=== PATIENT | male | born 1935 | race Caucasian/White ===

== ENCOUNTER 2016-10-01 08:15 | Observation (INO) | payer MEDICARE ==
[~2016-10-01] VITALS: Ht 177.8 cm; Wt 84.5 kg
[2016-10-01] VITALS (8 sets, daily range): BP systolic 138–172; BP diastolic 75–96; PULSE 48–88; RESP 12–19; O2SAT 94–100
[~2016-10-01 08:15] MED LIST: AMLO5TAB2 PO; ASCO500T7 PO; ASPI-628 PO; CALC500T61 PO; CHOL100043 PO; NITR0.4T SL; NITR4.9S5 SL; OMEG1CAP56 PO; OMEP-113 PO; ROSU5TAB PO; UBID100C25 PO; VITA1CAP PO
--- NOTE | 2016-10-01 08:42 | ED.REPORT ---
HPI-Dyspnea / Wheezing Date of Service Oct 01, 2016 ED Provider: Aiden Ni MD The pt is a 80 y/o male w/ a hx of obstructive sleep apnea and CAD presenting to the ED complaining of SOB onset 1 week ago. He reports feeling increasingly short of breath after walking his dog earlier today. The pt also reports sharp back pain between his shoulder blades and L arm pain that lasted for 2 days last week. His also reports the pt was unable to hold a baby yesterday due to increasing weakness. Denies CP, fevers, cough, nasal congestion, vomiting. The pt usually walks roughly 10,000 steps a day. The pt had similar symptoms, w / no CP, 15 years ago, which eventually led to a 5 way bypass. Code status discussed: Full code Nursing Notes Stated Complaint: SOB Chief Complaint: SOB Nursing Notes Reviewed: Yes Allergies: Coded Allergies: Sulfa (Sulfonamide Antibiotics) (Verified Allergy, Unknown, 06/29/14) Scheduled Amlodipine (Amlodipine) 5 Mg Tablet 5 MG PO HS Ascorbic Acid (Vitamin C) 500 Mg Tab.chew 500 MG PO DAILY Aspirin (Aspir 81) 81 Mg Tablet.dr 81 MG PO HS Calcium Carbonate (Calcium) 500 Mg Tablet 500 MG PO DAILY Cholecalciferol (Vitamin D3) (Vitamin D) 1,000 Unit Tablet 1,000 UNIT PO DAILY [place]-3 Fatty Acids/Fish Oil ([place] 3 1,000 mg Softgel) 1 Each Capsule 1 EACH PO DAILY Omeprazole Magnesium (Omeprazole) 20 Mg Capsule.dr 20 MG PO every other day Rosuvastatin Calcium (Crestor) 5 Mg Tablet 5 MG PO HS Ubidecarenone (Co Q-10) 100 Mg Capsule 100 MG PO DAILY Vitamin B Complex (Vitamin B Complex) 1 Each Capsule 1 EACH PO DAILY Scheduled PRN Nitroglycerin SL (Nitrostat) 0.4 Mg Tab.subl 0.4 MG SL Q5MIN PRN PRN For Chest Pain Nitroglycerin [place] (Nitroglycerin [place]) 4.9 Gm [place] 1 SPRAY SL Q5MIN PRN PRN For Chest Pain General Time Seen by MD: 08:22 Chief Complaint Shortness of breath Hx Obtained From: Patient Arrived By: Walk-in Sudden in Onset?: Yes Onset Occurred: 1 week ago Symptom Duration: Since onset Recent Healthcare: No recent hospitalization, Recent doctor visit Similar Sx Previous: Yes Past Medical History Past Medical History EDISON CAD Code status: Full code Reports: Hyperlipidemia, Hypertension Past Surgical History cervical fusion rotator cuff Reports: CABG Smoking History Former Smoker Social History Alcohol Use: "Social" Other Social History: , From out of town Ambulatory Status Independent Review of Systems Sharp pain between shoulder blades; Constitutional: Denies: Fever Ears / Nose / Throat: Denies: Nasal congestion Respiratory: Reports: Dyspnea on exertion, Shortness of breath, Denies: Non-productive cough Cardiovascular: Denies: Chest pain Musculoskeletal: Reports: Extremity pain (L arm ) Complete sys rev & neg: except as marked. GI: Denies: Vomiting Neurologic: Reports: Weakness Physical Exam Initial Vital Signs Vital Signs (First) Date Time Temp Pulse Resp B/P Pulse Ox O2 Delivery O2 Flow Rate FiO2 10/01/16 08:21 36.6 62 19 163/79 96 Room Air Initial VS: Reviewed Head / Eyes: Atraumatic, Normocephalic, PERRL ENT: Mucous membranes moist, Conjunctiva normal, No scleral icterus Extremities: Vascular intact, Neuro intact, No swelling, No tenderness Skin: Warm, Dry, No cyanosis Neurologic: Alert, Oriented, Nonfocal Psychiatric: Mood/affect normal, Behavior normal, Normal thought content General/Constitutional: Awake, Alert Neck: Atraumatic, Supple, Full range of motion Respiratory / Chest: Atraumatic, Breath sounds NL, Breath sounds = bilat Cardiovascular: Heart rate NL, Regular rhythm, Heart sounds NL No peripheral edema Interpretation & Diagnostics Lab Results Interpretation Result Diagram: 10/01/16 0830 10/01/16 0830 Test 10/01/16 08:30 10/01/16 08:47 White Blood Count 6.4th/mm3 (3.8-10.1) Red Blood Count 4.63mil/mm3 (4.40-5.80) Hemoglobin 15.3g/dL (13.8-17.2) Hematocrit 43.9% (41.0-50.0) Mean Corpuscular Volume 94.8fL (81-100) Mean Corpuscular Hemoglobin 33.0pg (27.0-35.0) Mean Corpuscular Hemoglobin Concent 34.9% (32.0-37.0) Red Cell Distribution Width 13.0% (12.3-15.4) Platelet Count 212bil/L (150-400) Neutrophils (%) (Auto) 63.2% (40-74) Lymphocytes (%) (Auto) 21.4% (14-46) Monocytes (%) (Auto) 10.2% (4-12) Eosinophils (%) (Auto) 4.4% (0-5) Basophils (%) (Auto) 0.5% (0-3) Prothrombin Time 9.7sec (8.1-12.5) Prothromb Time International Ratio 0.91ratio Activated Partial Thromboplast Time 26.4sec (22.8-33.0) D-Dimer < 0.50mg/L FEU (<0.50) Sodium Level 143mEq/L (134-144) Potassium Level 4.2mEq/L (3.5-5.2) Chloride Level 108mEq/L (97-108) Carbon Dioxide Level 21mmol/L (18-29) Blood Urea Nitrogen 20mg/dL (8-27) Creatinine 0.86mg/dL (0.76-1.27) Estimat Glomerular Filtration Rate 91mL/min (>59) Glucose Level 87mg/dL (60-99) Calcium Level 9.4mg/dL (8.5-10.1) Magnesium Level 2.2mg/dL (1.6-2.6) Total Bilirubin 0.4mg/dL (0.0-1.2) Aspartate Amino Transf (AST/SGOT) 22U/L (0-50) Alanine Aminotransferase (ALT/SGPT) 20U/L (0-44) Alkaline Phosphatase 52U/L (25-160) Pro-B-Type Natriuretic Peptide 93.02pg/mL (0-486) Total Protein 7.0g/dL (6.4-8.4) Albumin 4.5g/dL (3.4-5.0) Hold Young Top Tube Received (Received) Hold Urine Received (Received) ECG Interpretation ECG Interpretation: Rate [address] elevation isolated to V2 Time: 08:22 Interpreted by: ED physician X-Ray Chest Interpretation Chest Xray Interpretation: IMPRESSION: Sternotomy wires, presumed prior CABG. Mildly reduced inspiratory volume, chronic mild asymmetric elevation of the left hemidiaphragm. Dictated by: Star Noyola M.D. on 10/01/2016 at 8:51 Approved by: Star Noyola M.D. on 10/01/2016 at 8:52 View: Portable, 1 view Interpretation / Wet Read by: Interpret - Radiologist Re-Eval/Medical Decision Med Decision/Clinical Course 80-year-old male with history of 5 vessel CABG in 2001 present with exertional dyspnea worsening over the last couple days. His vital signs are stable. His EKG shows ST elevations in isolated in V2 with T wave inversion in V2 which is reportedly unchanged from previous per review with cardiology. Initial troponins are negative. Discussed with cardiology. We will admit for heparin drip, stress test. Source of Hx: Old records Re-Evaluation/Progress : Time of Eval: 09:55 Re-Evaluation/Progress Note: Pt rechecked. Informed pt of need for admission. Pt understands and agrees with plan for admission. All questions addressed. Consultation : Referral / Consult Name: Mario Nevarez MD Consulted With: Hospitalist Call Returned at: 10:30 Manager Of Training And Development: Will see patient, Agrees with eval, Agrees with plan, Accepts admit Counseled Regarding: Diagnosis, Lab results, Need for admission Discharge & Departure Impression: Primary Impression: Chest pain Chest pain type: unspecified Qualified Code: R07.9 - Chest pain, unspecified Disposition: Home Discharge Condition All VS Reviewed: Yes Condition: Stable Referrals: Ced Alford (PCP) Crit Care Except Billable Proc Time Spent: 75-104 minutes Services Performed: Patient management by me, Time spent at bedside, Reviewing test results, Reviewing imaging, Discussing patient care, Documentation in record, Time with fam/surrogate Scribe Attestation Portions of this note were transcribed by Franky Adan. I, Dr. Ni personally performed the history, physical exam and medical decision-making; I reviewed and confirmed the accuracy of the information in the transcribed note. copies to: Ced Alford Ben M MD Oct 01, 2016 08:42 Franky Adan Oct 01, 2016 09:04
[2016-10-01 08:49] LABS: BASOPHILS % (AUTO) 0.5 % (0-3); EOSINOPHILS % (AUTO) 4.4 % (0-5); MONOCYTES % (AUTO) 10.2 % (4-12); Mean Corpuscular Volume 94.8 fL (81-100); NEUTROPHILS % (AUTO) 63.2 % (40-74); Platelet Count 212 bil/L (150-400)
--- NOTE | 2016-10-01 08:53 | DRSVH ---
PROCEDURE: X-RAY CHEST ONE VIEW, PORTABLE ([id number]) INDICATIONS: SHORT OF BREATH TECHNIQUE: One view of the chest was acquired. COMPARISON: [facility], , CHEST 1VW (PORTABLE), 06/29/2014, 14:49. FINDINGS: Surgical changes and devices: Sternotomy wires, presumed prior CABG. Mild elevation of left diaphrag m previously present. Lungs and pleura: No pleural effusions or pneumothorax. Lungs are clear. Mediastinum: Mediastinal contours appear normal. Heart size is normal. Bones and chest wall: No suspicious bony lesions. Overlying soft tissues appear unremarkable. IMPRESSION: Sternotomy wires, presumed prior CABG. Mildly reduced inspiratory volume, chronic mild a symmetric elevation of the left hemidiaphragm. Dictated by: Star Noyola M.D. on 10/01/2016 at 8:51 Approved by: Star Noyola M.D. on 10/01/2016 at 8:52
[2016-10-01 09:05] LABS: INR 0.91 ratio
[2016-10-01 09:12] LABS: TROPONIN T 0.01 ug/L (0.0-0.011)
[2016-10-01 09:23] LABS: Magnesium 2.2 mg/dL (1.6-2.6)
[2016-10-01] MEDS ORDERED: Heparin 25K Unit/500mL 0.45 NS 25,000 UNIT in IV Premix 1 EACH IV ONE (10:00)
[2016-10-01] MEDS ORDERED: Heparin 5,000 Unit/mL Inj IVPUSH ONE (10:00)
--- NOTE | 2016-10-01 12:04 | NUR ---
Admit A&O pt arrived to unit from ED at 1135. Pt denies pain. IV patent with Heparin infusing. Admit to be complete. in and assessed pt. Tele on pt, box 53, SB 50s Pt oriented to room and facility, denies having questions. is at bedside. Bed in low position, upper rails up, call light in reach. Will continue to monitor.
[2016-10-01] MEDS ORDERED: Heparin 25K Unit/500mL 0.45 NS 25,000 UNIT in IV Premix 1 EACH IV SCH (12:30)
[2016-10-01] MEDS ORDERED: Heparin 5,000 Unit/mL Inj IVPUSH PRN (12:30)
--- NOTE | 2016-10-01 13:21 | PCM.HPMED ---
Subjective Date of Service Oct 01, 2016 Primary Provider: Admitting Physician: Mario Nevarez MD Primary Care Physician: Bev Attending Physician: Mario Nevarez MD Admit Status: From the Emergency Department, Admit to Blue Team Chief Complaint: SOB History of Present Illness: Patient is a pleasant 80-year-old male with history of hx of HTN obstructive sleep apnea on nocturnal CPAP, CAD s/p CABG presenting to ED c/o of 1 week progressively increased Dyspnea and associated chest pressure. He says that earlier today he was walking his dog when experienced shortness of breath. Patient says that he noticed some sharp back pain 1 week ago that lasted for 2 days. Patient says that that pain resolved. Patient's 's concerned as he said that he was feeling very weak and tired while holding a baby. At baseline patient can walk 10,000 steps a day without any shortness of breath or dyspnea on exertion. Patient did notice a transient episode of left arm numbness days ago. Currently denies any significant chest pain. Does admit to some mild chest pressure. . Patient chief physical therapist is Dr. Juarez. Patient says that last stress test was 2 years ago which was negative. Patient takes daily aspirin. Patient does have transient chest pressure at times it lasts usually less than 10 seconds Denies CP, fevers, cough, nasal congestion, vomiting. The pt had similar symptoms, w/ no CP, 15 years ago, which eventually led to a 5 way bypass. Allergies Coded Allergies: Sulfa (Sulfonamide Antibiotics) (Verified Allergy, Unknown, 06/29/14) Home Medications Amlodipine (Amlodipine) 5 Mg Tablet 5 MG PO DAILY Ascorbic Acid (Vitamin C) 500 Mg Tab.chew 500 MG PO DAILY Aspirin (Aspir 81) 81 Mg Tablet. 81 MG PO DAILY Calcium Carbonate (Calcium) 500 Mg Tablet 500 MG PO DAILY Cholecalciferol (Vitamin D3) (Vitamin D) 1,000 Unit Tablet 1,000 UNIT PO DAILY [place]-3 Fatty Acids/Fish Oil ([place] 3 1,000 mg Softgel) 1 Each Capsule 1 EACH PO DAILY Omeprazole Magnesium (Omeprazole) 20 Mg Capsule. 20 MG PO every other day Rosuvastatin Calcium (Crestor) 5 Mg Tablet 5 MG PO HS Ubidecarenone (Co Q-10) 100 Mg Capsule 100 MG PO DAILY Vitamin B Complex (Vitamin B Complex) 1 Each Capsule 1 EACH PO DAILY Scheduled PRN Nitroglycerin SL (Nitrostat) 0.4 Mg Tab.subl 0.4 MG SL Q5MIN PRN PRN For Chest Pain Nitroglycerin [place] (Nitroglycerin [place]) 4.9 Gm [place] 1 SPRAY SL Q5MIN PRN PRN For Chest Pain PMH EDISON CAD Hyperlipidemia Hypertension Surgical History cervical fusion rotator cuff Reports: CABG Social History Hx Alcohol Use: Yes (occasional) Hx Substance Use: No Smoking Status: Former Smoker Exam Vital Signs Vital Sign - Last Date Time Temp Pulse Resp B/P Pulse Ox O2 Delivery O2 Flow Rate FiO2 10/01/16 12:31 88 10/01/16 11:40 36.4 16 168/76 100 Room Air Exam Gen: NAD, AOx4, HEENT: NCAT, PERRLA, EOMI, MMM, sclera anicteric. Neck: Soft, supple, no thyromegaly/JVD/LAD. Resp: CTAB, no R/R/W. CV: S1 S2, RRR, No M/R/G +Mild TTP substernal. No friction rub appreciated. Abd: Soft, (+) BS, NT/ND, no guarding/rebound/organomegaly. Ext: +PP, No edema. Skin: warm/dry/intact Neuro/Psych: Cooperative, appr mood/affect. CN II-XII grossly intact. No focal deficits. Lab and Diagnostics Labs Laboratory Tests Test 10/01/16 08:30 10/01/16 08:47 White Blood Count 6.4th/mm3 (3.8-10.1) Red Blood Count 4.63mil/mm3 (4.40-5.80) Hemoglobin 15.3g/dL (13.8-17.2) Hematocrit 43.9% (41.0-50.0) Mean Corpuscular Volume 94.8fL (81-100) Mean Corpuscular Hemoglobin 33.0pg (27.0-35.0) Mean Corpuscular Hemoglobin Concent 34.9% (32.0-37.0) Red Cell Distribution Width 13.0% (12.3-15.4) Platelet Count 212bil/L (150-400) Neutrophils (%) (Auto) 63.2% (40-74) Lymphocytes (%) (Auto) 21.4% (14-46) Monocytes (%) (Auto) 10.2% (4-12) Eosinophils (%) (Auto) 4.4% (0-5) Basophils (%) (Auto) 0.5% (0-3) Prothrombin Time 9.7sec (8.1-12.5) Prothromb Time International Ratio 0.91ratio Activated Partial Thromboplast Time 26.4sec (22.8-33.0) D-Dimer < 0.50mg/L FEU (<0.50) Sodium Level 143mEq/L (134-144) Potassium Level 4.2mEq/L (3.5-5.2) Chloride Level 108mEq/L (97-108) Carbon Dioxide Level 21mmol/L (18-29) Blood Urea Nitrogen 20mg/dL (8-27) Creatinine 0.86mg/dL (0.76-1.27) Estimat Glomerular Filtration Rate 91mL/min (>59) Glucose Level 87mg/dL (60-99) Calcium Level 9.4mg/dL (8.5-10.1) Magnesium Level 2.2mg/dL (1.6-2.6) Total Bilirubin 0.4mg/dL (0.0-1.2) Aspartate Amino Transf (AST/SGOT) 22U/L (0-50) Alanine Aminotransferase (ALT/SGPT) 20U/L (0-44) Alkaline Phosphatase 52U/L (25-160) Troponin T 0.010ug/L (0.0-0.011) Pro-B-Type Natriuretic Peptide 93.02pg/mL (0-486) Total Protein 7.0g/dL (6.4-8.4) Albumin 4.5g/dL (3.4-5.0) Hold Young Top Tube Received (Received) Hold Urine Received (Received) Result Diagram: 10/01/1682910/01/16829 X-Rays, CTs and MRIs Date of Service: 10/01/16818 PROCEDURE: X-RAY CHEST ONE VIEW, PORTABLE ([id number]) INDICATIONS: SHORT OF BREATH TECHNIQUE: One view of the chest was acquired. COMPARISON: [facility], , CHEST 1VW (PORTABLE), 06/29/2014, 14:49. FINDINGS: Surgical changes and devices: Sternotomy wires, presumed prior CABG. Mild elevation of left diaphragm previously present. Lungs and pleura: No pleural effusions or pneumothorax. Lungs are clear. Mediastinum: Mediastinal contours appear normal. Heart size is normal. Bones and chest wall: No suspicious bony lesions. Overlying soft tissues appear unremarkable. IMPRESSION: Sternotomy wires, presumed prior CABG. Mildly reduced inspiratory volume, chronic mild asymmetric elevation of the left hemidiaphragm. 12-lead ECG 10/01 EKG- NSR. QTC 405 Assessment & Plan Patient is a pleasant 80-year-old male with history of hx of HTN, obstructive sleep apnea on nocturnal CPAP, HLD, CAD s/p CABG presenting to ED c/ o of 1 week progressively increased Dyspnea and associated chest pressure. Chest pressure/Dyspnea- acute, poa - May be due to unstable angina. hx of CAD s/p CABG. EKG- no SAM. Consider MSK etiology given hx of back pain over last week. No evidence of infection. - CXR- Sternotomy wires, presumed prior CABG. Mildly reduced inspiratory volume , chronic mild asymmetric elevation of the left hemidiaphragm. - Trop neg x1, repeat at 1400. - Stress Test in AM, pt can tolerated exercise. - Repeat Echo. - c/w asa. NTG prn. - Cardiology, Dr. Juarez consulted in ED. She rec Heparin gtt and stress test. - NPO past Mn. CAD s/p CABG- chronic, active - as above. 06/2014- Echo- EF 55-60%.subtle basal inferoseptal hypokinesis. No valvular abnormalities. - c/w aspirin. Rosuvastatin. Pt not on beta adrienne as didn't tolerated it in past. HTN, chronic, active- c/w home med amlodipine. Obstructive sleep apnea on nocturnal CPAP- chronic, stable. - pt's to bring in home CPAP. - CXR- Mildly reduced inspiratory volume, chronic mild asymmetric elevation of the left hemidiaphragm HLD- Chronic, stable. - c/w Rosuvastatin Status-Patient is admitted under observation status expected length of stay less than 2 midnights due to severity of presenting symptoms, risk of adverse events, and complexity of treatment plan. Dispo- Make sure cleared by cardiology before discharge per 's concern about normal stress followed by abnormal cardiac cancerization in past. Pain Evaluation: Adequate Pain Control GI Prophylaxis: Proton Pump Inhibitor VTE Prophylaxis Indicated: Meets Criteria for Anticoag Therapy VTE Prophylaxis: Other (Heparin infusion ) VTE Mechanical Devices: Intermittant Pneumatic CD, Venous Foot Pump Resuscitation Status: CPR: Attempt Resuscitation Time spent >45 minutes Mario Nevarez MD Oct 01, 2016 13:21
[2016-10-01] MEDS ORDERED: Polyethylene Glycol (PEG) 17 Gm Powder PO PRN (13:25)
[2016-10-01] MEDS ORDERED: Alum-Mag Hydrox-Simeth 30 mL Suspension PO PRN (13:25)
[2016-10-01] MEDS ORDERED: Ondansetron 2 mg/mL 2 mL Inj IVPUSH PRN (13:25)
--- NOTE | 2016-10-01 13:48 | PCM.CHPCAR ---
Consult Subjective Date of service Oct 01, 2016 Date of admit Oct 01, 2016 at 10:28 Provider Requesting Consult Primary Care Physician Primary Care Physician: Nopcp Chief Complaint SOB and Fatigue History of Present Illness This is a 80 year old male with a history of CAD s/p CABG, HTN, Hyperlipidema, and EDISON who presented to the ED with exertional dyspnea, fatigue and intermittent sharp upper back pain. He walks his dog daily and discontinued his walk this morning secondary fatigue, dyspnea and clamminess. He doesn't have dyspnea at baseline and typically walks 10 thousands steps daily. He notes having fatigue and weakness while holding his grandchild yesterday having to set her down which is unusual for him. He states he had similar symptoms prior to his CABG 15 years ago which required [address] way bypass grafts. He states that at that time he had normal cardiac enzymes, normal exercise stress test but a positive cardiac cath. He denies chest pain, chest discomfort, dyspnea at rest , N/V, claudication, calf tenderness, and edema.He did have midline sharp thoracic pain intermittently starting a week ago.It lasted for a few hours at its longest. He notes having similar back pain in the past but not as painful or long lasting. Laying in bed currently his legs feel weak. He currently takes ASA 81 daily, Crestor 5mg, and amlodipine 5mg Exercise stress test done 2014 Impression 1. Probable normal, low risk sestamibi study 2. mild inferior defect with near complete resolution 3. normal left ventricular systolic function w/o any focal wall motion abnormailty 4. exceptiona exercise capicity without angina and nonspecific ST segment sifts Dictated by Anil Chase MD 06/30/14 Review of Systems General: Reports: Fatigue No Chills No Fever Eyes: Denies: Double or blurred vision Ears, Nose, Mouth & Throat: Denies: Difficulty swallowing Dysphagia Respiratory: Reports: Dyspnea with exertion Denies: Dyspnea (at rest) Cardiovascular: Reports: Chest Discomfort (intermittent) Denies: Calf claudication Lightheadedness or syncope Palpitations Gastrointestinal: Denies: Black stools Hematochezia Nausea Vomiting Genitourinary: Denies: Dysuria Neurological: Denies: Confusion Dizziness Psychiatric: Reports: Anxious (patient is tearful which is unusual for him ) PMH Scheduled Amlodipine (Amlodipine) 5 Mg Tablet 5 MG PO HS (Reported) Ascorbic Acid (Vitamin C) 250 Mg Tab.chew 500 MG PO DAILY (Reported) Aspirin (Aspirin) 81 Mg Tablet 81 MG PO DAILY (Reported) Calcium Carbonate (Tums) 500 Mg Tab.chew 500 MG PO DAILY (Reported) Cholecalciferol (Vitamin D3) (Vitamin D) 1,000 Unit Tablet 1,000 UNIT PO DAILY ( Reported) [place]-3 Fatty Acids/Fish Oil ([place] 3 1,000 mg Softgel) 1 Each Capsule 1 CAPSULE PO DAILY (Reported) Omeprazole (Omeprazole) 20 Mg Capsule.dr 20 MG PO Every other day (Reported) Rosuvastatin Calcium (Crestor) 5 Mg Tablet 5 MG PO HS Ubidecarenone (Co Q-10) 100 Mg Capsule 100 MG PO DAILY (Reported) Vit B Comp/C/FA/Iron/Vit E (Vitamin B Complex Tablet) 1 Each Tablet 1 TAB PO DAILY (Reported) Scheduled PRN Nitroglycerin SL (Nitrostat) 0.4 Mg Tab.subl 0.4 MG SL Q5MIN PRN PRN For Chest Pain (Reported) Discontinued Medications Ascorbic Acid (Vitamin C) 500 Mg Tab.chew 500 MG PO DAILY (Reported) Calcium Carbonate (Calcium) 500 Mg Tablet 500 MG PO DAILY (Reported) Nitroglycerin [place] (Nitroglycerin [place]) 4.9 Gm [place] 1 SPRAY SL Q5MIN PRN PRN For Chest Pain Omeprazole Magnesium (Omeprazole) 20 Mg Capsule.dr 20 MG PO every other day ( Reported) Vitamin B Complex (Vitamin B Complex) 1 Each Capsule 1 EACH PO DAILY (Reported) Current Inpatient Medications Current Medications Heparin Sodium (Porcine) Per Protocol for a... PRN PRN IVPUSH; Start 10/01/16 at 12:30 Al Hydrox/Mg Hydrox/Simethicone 30 ml Q6H PRN PO; Start 10/01/16 at 13:25 Ondansetron HCl 4 to 8 mg Q4H PRN IVPUSH; Start 10/01/16 at 13:25 Senna 17.2 mg BID PRN PO; Start 10/01/16 at 13:25 Polyethylene Glycol 17 gm DAILY PRN PO; Start 10/01/16 at 13:25 Allergies: Coded Allergies: Sulfa (Sulfonamide Antibiotics) (Verified Allergy, Severe, Skin rash, 10/01) Family History Family History Father- 62 required CABGx2 Mother- Hypertension Social History Hx Alcohol Use: Yes (3 drinks nightly)Hx Substance Use: No Smoking Status: Former Smoker (quit in 1968) Living Arrangement: with Family (with in travel trailer) Exam Vital Signs Vital Sign - Last Date Time Temp Pulse Resp B/P Pulse Ox O2 Delivery O2 Flow Rate FiO2 10/01/16 12:31 88 10/01/16 11:40 36.4 16 168/76 100 Room Air General: Pleasant Cooperative Healthy appearing Well developed, well nourished Skin: Warm & dry to touch Head: Normocephalic Neck: No JVD No bruits Ears, Nose & Throat: Ears no gross abnormalities Good dentition Chest: Clear auscultation w/o rales/wheeze Cardiac: Regular rhythm with normal S1-S2 (occasional bradycardia to 50s while examining ) No S3 or S4 No murmurs Pulses: Pulses full/equal all extremities Abdomen: Soft, non-distended, non-tender Extremities: Warm w/o deformities,erythema noted No cyanosis/clubbing/edma bilat Neurological: Alert & oriented Psychological: Affect & interaction appropriate Lab and Diagnostics Result Diagram: 10/01/1682910/01/16 0830 X-Rays, CTs and MRIs PROCEDURE: X-RAY CHEST ONE VIEW, PORTABLE ([id number]) IMPRESSION: Sternotomy wires, presumed prior CABG. Mildly reduced inspiratory volume, chronic mild asymmetric elevation of the left hemidiaphragm. Dictated by: Star Noyola M.D. on 10/01/2016 at 8:51 Approved by: Star Noyola M.D. on 10/01/2016 at 8:52 12-lead ECG Sinus rhythm None specific t-wave inversion in V2 . When compared with ECG of 29-Jun-2014 15:03:56, . No significant change Assessment & Plan Assessment This is a 80 year old male with a history of CAD s/p CABG, HTN, Hyperlipidema, and EDISON who presented to the ED with exertional dyspnea, fatigue and intermittent sharp upper back pain. Atypical chest pain, acute, active. - Most likely unstable angina s/p CABG however aortic dissection,COPD and muscular skeletal pain can not be ruled out yet - Troponin Negative x 1, second troponin pending. - Exercise stress test in morning - Heparin gtt - NPO after midnight - CABG x 5 vessels 15 years ago with [place] graft - Continue ASA 81 daily - Intermittent bradycardia CAD, chronic, active - CABGx5 - Continue home crestor 5mg HTN, chronic, stable - Continue home amlodipine 5mg EDISON, chronic, stable. - Continue home CPAP machine Problems: (1) CAD (coronary artery disease) of artery bypass graft Qualifiers: Associated angina: without angina Status: Acute ICD Code: I25.810 (2) HTN (hypertension) Qualifiers: Hypertension type: essential hypertension Qualified Code: I10 - Essential (primary) hypertension Status: Chronic ICD Code: I10 VTE Mechanical Devices: Venous Foot Pump Aliya Kaufman DO Oct 01, 2016 13:48
[2016-10-01] MEDS ORDERED: ASPI-973 PO (16:44)
[2016-10-01] MEDS ORDERED: CALC500T9 PO (16:44)
[2016-10-01] MEDS ORDERED: OMEP20CA11 PO (16:44)
[2016-10-01] MEDS ORDERED: ASCO250T7 PO (16:44)
[2016-10-01] MEDS ORDERED: VIT1TABL83 PO (16:44)
--- NOTE | 2016-10-01 17:38 | NUR ---
Case Management: WENDY explained to patient at 1705, all questions answered. Signed original placed in chart, copy given to patient. Pt refused Medicare Part D Drug information. Zoraida Coreas RN
[2016-10-02 00:26] VITALS: BP 138/90; PULSE 66; RESP 18; O2SAT 97
--- NOTE | 2016-10-02 05:36 | NUR ---
CPAP pt's own cpap setup by RT, O2 saturation 97% resting quietly.
[2016-10-02 07:01] VITALS: BP 123/80; PULSE 93; RESP 18; O2SAT 96
--- NOTE | 2016-10-02 09:04 | NUR ---
Social Work-initial assessment/readiness for discharge/ multidisciplinary rounds: Data:See initial assessment. Pt is a 80 y/o male who was admitted on 10/01/16 for CP per H&P. Pt's insurance is [employer] and PCP is Dr. Santos. EMR reviewed. Pt's readmission score is 1. SW met with pt at bedside, SW role explained. Pt is alert and oriented x3. 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 Pt drives and does not use any DME at baseline.Pt has no HH or SNF history. Pt has no shelter care insurance or VA benefits. SW discussed DPOA/ advanced directive, pt confirms he has all the paperwork and is working on completely this. No concerns noted from RN or MD regarding pt's capacity for self care, pt has been up independent in his room. SW provided pt with discharge planning checklist and encouraged him to call with any questions, phone number provided on white board in room. Pt's to provide transport home. No anticipated discharge needs. SW will continue to follow if needs arise. Assessment:Pt who is independent at baseline. Plan:Pt to discharge home when medically stable via POV. No anticipated discharge needs. SW will continue to follow if needs arise. YUDY Carter Addendum: 10/02/16 at 0909 by MARIAM ROGERS SS Amended: Links added. Addendum: 10/02/16 at 0916 by MARIAM ROGERS SS Pt also has home CPAP.
--- NOTE | 2016-10-02 09:55 | NUR ---
ptt lab notified that pt currently at stress test and will need to find pt there to obtain lab work scheduled for 1000.
[2016-10-02 10:16] VITALS: PULSE 64
[2016-10-02 13:06] VITALS: BP 139/82; PULSE 69; RESP 20; O2SAT 95
--- NOTE | 2016-10-02 16:03 | PCM.DIMED ---
Discharge Instructions Date of Service Oct 02, 2016 Dates of Hospitalization Oct 01, 2016 at 10:28 Discharge Diagnosis Discharge Diagnosis Atypical chest pain with negative stress test result Diet Discharge Diet: Low fat, Low Sodium, Heart Healthy Activity Discharge Activity: No restrictions Call your provider Call your provider for: Shortness of breath, Chest pain Patient Instructions Patient Instructions You were hospitalized with symptoms concerning for acute heart attack. You underwent stress test, which didn't reveal any abnormalities. Please follow up with your doctor in 1-2weeks, doctor Larry in 2-4weeks Follow-up Provider: Stacy Juarez MD Follow-up with PCP in: 2 weeks Milagro Menjivar MD Oct 02, 2016 16:03
--- NOTE | 2016-10-02 16:14 | NUR ---
Social Work-discharge: Data:EMR reviewed. Pt is on day 1 of hospitalization for CP per H&P. Pt is medically stable for discharge. Pt has been up independent in his room. Pt's to provide transport home. No discharge needs identified. All updated and agreeable to plan. Assessment:pt who is independent at baseline. Plan:Pt to discharge home today via POV. No discharge needs identified. All updated and agreeable to plan. YUDY Carter
--- NOTE | 2016-10-02 16:26 | DRSVH ---
PROCEDURE: 1 DAY TREADMILL STRESS TEST Rest and exercise myocardial perfusion SPECT with gated imaging and ejection fraction RADIOPHARMACEUTICAL: 7.8 mCi Tc-99m tetrafosmin IV at rest and 25.1 mCi Tc-99m tetrafosmin IV at peak exercise. Moj-qei-iueopjhr was performed. INDICATIONS: 80 year-old male with chest pain. The patient has its coronary artery disease with histo ry of coronary bypass grafting 15 years ago. Evaluate myocardial ischemia. TECHNIQUE: Radiopharmaceutical was injected at peak stress test, and also at rest. SPECT images wer e obtained. SPECT myocardial perfusion images were displayed in short axis, horizontal long axis, an d vertical long axis views. Gated images were reviewed using Posh Eyes software. COMPARISON: [facility], [place], MYOCARD PERF SPECT SINGLE, 06/30/2014, 13:47. CARDIAC STRESS: A standard Santhosh treadmill exercise tolerance test was performed by the patient under the supervision of an attending staff. The patient exercised for 7 minutes and 37 seconds; functional aerobic impai rment (JEREL) is -40 %. % Hemodynamic data: There is normal blood pressure and heart rate response to exercise stress. Patien t achieved 85% of maximum predicted heart rate at peak exercise. Symptoms: Patient denied chest pain during exercise. EK mm ST depression in inferior leads; occasional PVCs. FINDINGS: Raw data: There is good myocardial labeling by radiotracer. No significant motion artifacts. Left ventricle function: Gated images demonstrate normal left ventricle wall thickening. No segment al wall motion abnormality. No transient ischemic dilation. The left ventricle resting end-diastoli c volume is normal. Left ventricle stress ejection fraction is 68%; normal values are above 45%. Myocardial perfusion: There is a moderate size, mild, fixed defect in the lateral inferior wall, whi ch is resolved on prone imaging, suggesting diaphragmatic attenuation artifact. There is otherwise no rmal distribution of activity in the left and right ventricular myocardium. No reversible perfusion defect. Comparison to prior examinations: Compared to the last exam on 06/30/2014, there is no significant kimberley nge. IMPRESSION: 1. Probably normal myocardial perfusion images. No convincing evidence for myocardial ischemia or inf arct. 2. A moderate size, mild, fixed defect in the lateral inferior wall is likely caused by a diaphragmat ic attenuation artifact. The defect is resolved on prone imaging. 3. Normal left ventricular volume and systolic function. 4. No chest pain. [address] depression in inferior leads. PQRS ATTESTATIONS: Measure 322 - Is this imaging test primarily performed on a low-risk surgery patient for preoperative evaluation within 30 days preceding their low-risk non-cardiac surgery? Low-risk surgery is defined as cardiac or myocardial infarction less than 1%, including (but not limited to) endoscopic pr ocedures, superficial procedures, cataract surgery, and excisional breast surgery: Answer: No Measure 323 - Is this imaging test performed primarily for the monitoring of an asymptomatic patient who had percutaneous coronary intervention on the visit date or within 2 years of the visit date? An swer: No Measure 324 - Is this imaging test performed primarily for the initial detection and risk assessment on an asymptomatic, low coronary heart disease patient? Low CHD risk definition = clinicians should consider the maximum number of available patient factors used to estimate risk based on [place] (A TP III criteria), typically age, gender, diabetes, smoking status, and use of blood pressure medicati on, and integrate age appropriate estimates for missing elements, such as LDL or standard blood press ure. Answer: No Dictated by: Carole Barrow M.D. on 10/02/2016 at 14:10 Approved by: Carole Barrow M.D. on 10/02/2016 at 14:30
--- NOTE | 2016-10-02 17:24 | PCM.DC.MED ---
Discharge Summary Date of Service Oct 02, 2016 Dates of Hospitalization Date of Hospital Admission Oct 01, 2016 at 10:28 Date of Discharge: Oct 02, 2016 Providers: Admitting Physician: Mario Nevarez MD Primary Care Physician: Bev Attending Physician: Milagro Menjivar MD Diagnosis at Time of Discharge Diagnosis at Time of Discharge acute dx Atypical chest pain with negative stress test result chronic dx CAD s/p CABG HTN, Obstructive sleep apnea on nocturnal CPAP- HLD Consultations Cardiology Procedures XRay, CTs & MRIs Date of Service: 10/01/16 0819 PROCEDURE: X-RAY CHEST ONE VIEW, PORTABLE ([id number]) INDICATIONS: SHORT OF BREATH TECHNIQUE: One view of the chest was acquired. COMPARISON: [facility], CHEST 1VW (PORTABLE), 06/29/2014, 14:49. FINDINGS: Surgical changes and devices: Sternotomy wires, presumed prior CABG. Mild elevation of left diaphragm previously present. Lungs and pleura: No pleural effusions or pneumothorax. Lungs are clear. Mediastinum: Mediastinal contours appear normal. Heart size is normal. Bones and chest wall: No suspicious bony lesions. Overlying soft tissues appear unremarkable. IMPRESSION: Sternotomy wires, presumed prior CABG. Mildly reduced inspiratory volume, chronic mild asymmetric elevation of the left hemidiaphragm. ECG 12 Lead 10/01 EKG- NSR. QTC 405 Other Diagnostics PROCEDURE: 1 DAY TREADMILL STRESS TEST Rest and exercise myocardial perfusion SPECT with gated imaging and ejection fraction RADIOPHARMACEUTICAL: 7.8 mCi Tc-99m tetrafosmin IV at rest and 25.1 mCi Tc-99m tetrafosmin IV at peak exercise. Evc-dfk-djhvjzyl was performed. INDICATIONS: 80 year-old male with chest pain. The patient has its coronary artery disease with history of coronary bypass grafting 15 years ago. Evaluate myocardial ischemia. TECHNIQUE: Radiopharmaceutical was injected at peak stress test, and also at rest. SPECT images were obtained. SPECT myocardial perfusion images were displayed in short axis, horizontal long axis, and vertical long axis views. Gated images were reviewed using Auto[employer] software. COMPARISON: [place], [place], MYOCARD PERF SPECT SINGLE, 06/30/2014, 13:47. CARDIAC STRESS: A standard Santhosh treadmill exercise tolerance test was performed by the patient under the supervision of an attending staff. The patient exercised for 7 minutes and 37 seconds; functional aerobic impairment (JEREL) is -40 %. % Hemodynamic data: There is normal blood pressure and heart rate response to exercise stress. Patient achieved 85% of maximum predicted heart rate at peak exercise. Symptoms: Patient denied chest pain during exercise. EK mm ST depression in inferior leads; occasional PVCs. FINDINGS: Raw data: There is good myocardial labeling by radiotracer. No significant motion artifacts. Left ventricle function: Gated images demonstrate normal left ventricle wall thickening. No segmental wall motion abnormality. No transient ischemic dilation. The left ventricle resting end-diastolic volume is normal. Left ventricle stress ejection fraction is 68%; normal values are above 45%. Myocardial perfusion: There is a moderate size, mild, fixed defect in the lateral inferior wall, which is resolved on prone imaging, suggesting diaphragmatic attenuation artifact. There is otherwise normal distribution of activity in the left and right ventricular myocardium. No reversible perfusion defect. Comparison to prior examinations: Compared to the last exam on 06/30/2014, there is no significant change. IMPRESSION: 1. Probably normal myocardial perfusion images. No convincing evidence for myocardial ischemia or infarct. 2. A moderate size, mild, fixed defect in the lateral inferior wall is likely caused by a diaphragmatic attenuation artifact. The defect is resolved on prone imaging. 3. Normal left ventricular volume and systolic function. 4. No chest pain. [address] depression in inferior leads. PQRS ATTESTATIONS: Measure 322 - Is this imaging test primarily performed on a low-risk surgery patient for preoperative evaluation within 30 days preceding their low-risk non- cardiac surgery? Low-risk surgery is defined as cardiac or myocardial infarction less than 1%, including (but not limited to) endoscopic procedures, superficial procedures, cataract surgery, and excisional breast surgery: Answer : No Measure 323 - Is this imaging test performed primarily for the monitoring of an asymptomatic patient who had percutaneous coronary intervention on the visit date or within 2 years of the visit date? Answer: No Measure 324 - Is this imaging test performed primarily for the initial detection and risk assessment on an asymptomatic, low coronary heart disease patient? Low CHD risk definition = clinicians should consider the maximum number of available patient factors used to estimate risk based on [place] ( ATP III criteria), typically age, gender, diabetes, smoking status, and use of blood pressure medication, and integrate age appropriate estimates for missing elements, such as LDL or standard blood pressure. Answer: No Dictated by: Carole Barrow M.D. on 10/02/2016 at 14:10 Approved by: Carole Barrow M.D. on 10/02/2016 at 14:30 Brief History This is a 80 year old male with a history of CAD s/p CABG, HTN, Hyperlipidema, and EDISON who presented to the ED with exertional dyspnea, fatigue and intermittent sharp upper back pain. He walks his dog daily and discontinued his walk this morning secondary fatigue, dyspnea and clamminess. He doesn't have dyspnea at baseline and typically walks 10 thousands steps daily. He notes having fatigue and weakness while holding his grandchild yesterday having to set her down which is unusual for him. He states he had similar symptoms prior to his CABG 15 years ago which required [address] way bypass grafts. He states that at that time he had normal cardiac enzymes, normal exercise stress test but a positive cardiac cath. He denies chest pain, chest discomfort, dyspnea at rest , N/V, claudication, calf tenderness, and edema.He did have midline sharp thoracic pain intermittently starting a week ago.It lasted for a few hours at its longest. He notes having similar back pain in the past but not as painful or long lasting. Laying in bed currently his legs feel weak. He currently takes ASA 81 daily, Crestor 5mg, and amlodipine 5mg Exercise stress test done 2015 Impression 1. Probable normal, low risk sestamibi study 2. mild inferior defect with near complete resolution 3. normal left ventricular systolic function w/o any focal wall motion abnormailty 4. exceptiona exercise capicity without angina and nonspecific ST segment sifts Dictated by Anil Chase MD 06/30/14 Hospital Course Patient is a pleasant 80-year-old male with history of hx of HTN, obstructive sleep apnea on nocturnal CPAP, HLD, CAD s/p CABG presenting to ED c/ o of 1 week progressively increased Dyspnea and associated chest pressure. Brief hospital course Patient was admitted for cardiac workups. Initial chest pressure with this anemia was concerning as patient had atypical presentation when he had a CABG in the past. Troponins were negative 3. EKG did not show any ischemic changes. Patient was started on heparin drip as per Dr. Juarez recommendation. pt underwent exercise stress test, symptoms were not reproduced. The result was negative for perfusion defect. 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 Chest pressure/Dyspnea- acute, poa - May be due to unstable angina. hx of CAD s/p CABG. EKG- no SAM. Consider MSK etiology given hx of back pain over last week. No evidence of infection. - CXR- Sternotomy wires, presumed prior CABG. Mildly reduced inspiratory volume , chronic mild asymmetric elevation of the left hemidiaphragm. - Trop neg x1, repeat at 1400. - Stress Test in AM, pt can tolerated exercise. - Repeat Echo. - c/w asa. NTG prn. - Cardiology, Dr. Juarez consulted in ED. She rec Heparin gtt and stress test. - NPO past Mn. CAD s/p CABG- chronic, active - as above. 06/2014- Echo- EF 55-60%.subtle basal inferoseptal hypokinesis. No valvular abnormalities. - c/w aspirin. Rosuvastatin. Pt not on beta adrienne as didn't tolerated it in past. HTN, chronic, active- c/w home med amlodipine. Obstructive sleep apnea on nocturnal CPAP- chronic, stable. - pt's to bring in home CPAP. - CXR- Mildly reduced inspiratory volume, chronic mild asymmetric elevation of the left hemidiaphragm HLD- Chronic, stable. - c/w Rosuvastatin Status-Patient is admitted under observation status expected length of stay less than 2 midnights due to severity of presenting symptoms, risk of adverse events, and complexity of treatment plan. Dispo- Make sure cleared by cardiology before discharge per 's concern about normal stress followed by abnormal cardiac cancerization in past. Exam Vital Signs (Last) Date Time Temp Pulse Resp B/P Pulse Ox O2 Delivery O2 Flow Rate FiO2 10/02/16 13:06 36.9 69 20 139/82 95 Room Air 10/01/16 22:10 0.00 Exam Patient was examined on the day of discharge Test 10/01/16 08:30 10/01/16 08:47 10/01/16 19:55 10/02/16 05:23 White Blood Count 6.4th/mm3 (3.8-10.1) Red Blood Count 4.63mil/mm3 (4.40-5.80) Mean Corpuscular Volume 94.8fL (81-100) Mean Corpuscular Hemoglobin 33.0pg (27.0-35.0) Mean Corpuscular Hemoglobin Concent 34.9% (32.0-37.0) Red Cell Distribution Width 13.0% (12.3-15.4) Platelet Count 212bil/L (150-400) Neutrophils (%) (Auto) 63.2% (40-74) Lymphocytes (%) (Auto) 21.4% (14-46) Monocytes (%) (Auto) 10.2% (4-12) Eosinophils (%) (Auto) 4.4% (0-5) Basophils (%) (Auto) 0.5% (0-3) Prothrombin Time 9.7sec (8.1-12.5) Prothromb Time International Ratio 0.91ratio D-Dimer < 0.50mg/L FEU (<0.50) Sodium Level 143mEq/L (134-144) Potassium Level 4.2mEq/L (3.5-5.2) Chloride Level 108mEq/L (97-108) Carbon Dioxide Level 21mmol/L (18-29) Blood Urea Nitrogen 20mg/dL (8-27) Creatinine 0.86mg/dL (0.76-1.27) Estimat Glomerular Filtration Rate 91mL/min (>59) Glucose Level 87mg/dL (60-99) Calcium Level 9.4mg/dL (8.5-10.1) Magnesium Level 2.2mg/dL (1.6-2.6) Total Bilirubin 0.4mg/dL (0.0-1.2) Aspartate Amino Transf (AST/SGOT) 22U/L (0-50) Alanine Aminotransferase (ALT/SGPT) 20U/L (0-44) Alkaline Phosphatase 52U/L (25-160) Pro-B-Type Natriuretic Peptide 93.02pg/mL (0-486) Total Protein 7.0g/dL (6.4-8.4) Albumin 4.5g/dL (3.4-5.0) Hold Young Top Tube Received (Received) Hold Urine Received (Received) Troponin T < 0.010ug/L (0.0-0.011) Hemoglobin 15.1g/dL (13.8-17.2) Hematocrit 44.4% (41.0-50.0) Test 10/02/16 11:23 Activated Partial Thromboplast Time 60.9sec (22.8-33.0) Discharge Medications Discharge Medications Amlodipine (Amlodipine) 5 Mg Tablet 5 MG PO HS (Reported) Ascorbic Acid (Vitamin C) 250 Mg Tab.chew 500 MG PO DAILY (Reported) Aspirin (Aspirin) 81 Mg Tablet 81 MG PO DAILY (Reported) Calcium Carbonate (Tums) 500 Mg Tab.chew 500 MG PO DAILY (Reported) Cholecalciferol (Vitamin D3) (Vitamin D) 1,000 Unit Tablet 1,000 UNIT PO DAILY ( Reported) [place]-3 Fatty Acids/Fish Oil ([place]land 3 1,000 mg Softgel) 1 Each Capsule 1 CAPSULE PO DAILY (Reported) Omeprazole (Omeprazole) 20 Mg Capsule.dr 20 MG PO Every other day (Reported) Rosuvastatin Calcium (Crestor) 5 Mg Tablet 5 MG PO HS Prescribed by: FUAD MUNIZ DO Ubidecarenone (Co Q-10) 100 Mg Capsule 100 MG PO DAILY (Reported) Vit B Comp/C/FA/Iron/Vit E (Vitamin B Complex Tablet) 1 Each Tablet 1 TAB PO DAILY (Reported) As needed Nitroglycerin SL (Nitrostat) 0.4 Mg Tab.subl 0.4 MG SL Q5MIN PRN PRN For Chest Pain (Reported) Followup Plan Disposition: home Discharge Diet: Low fat, Low Sodium, Heart Healthy Discharge Activity: No restrictions Patient Instructions You were hospitalized with symptoms concerning for acute heart attack. You underwent stress test, which didn't reveal any abnormalities. Please follow up with your doctor in 1-2weeks, doctor Larry in 2-4weeks Follow-up Provider: Stacy Juarez MD Follow-up with PCP in: 2 weeks Time spent 65min Milagro Menjivar MD Oct 02, 2016 17:24
--- NOTE | 2016-10-02 18:52 | NUR ---
Discharge Pt dc'd ambulatory with at 1852. Stable and able to discuss all concerns with cardiology prior to discharge. All discharge instructions reviewed and pt and verbalized understanding. All belongings with pt on d/c.
--- NOTE | 2016-10-02 19:14 | PROG NOTE ---
[address] [address] PROGRESS NOTE PATIENT: WHITLEY VASQUEZ : 1935 MR#: [id number] ADMIT: 10/01/2016 JOB ID: [id number] DATE: 10/02/2016 SUBJECTIVE: Overnight the patient had no recurrence of arm discomfort, leg weakness, or pain between his shoulder blades. This morning he underwent a reassuring graded exercise stress test with myocardial perfusion imaging with no provocation of index symptoms. OBJECTIVE: Vital signs: Temperature 36.9, blood pressure 123/80 up to 139/82, pulse 64 up to 93 beats per minute. Satting 95% to 97% on room air. Well-nourished man, no apparent distress. Eyes: No scleral icterus. Neck: Supple. No lymphadenopathy. No carotid bruits. Heart: Normal S1, S2. No murmurs. Lungs: Clear to auscultation anteriorly. Abdomen: Soft, positive bowel sounds. No hepatosplenomegaly. Extremities: Warm, well perfused. No clubbing, cyanosis, or edema. Skin: No rashes or lesions. LABORATORIES: Reviewed. Troponins are negative x3. CBC is normal. Comprehensive metabolic panel was normal. The occult blood testing showed evidence of guaiac-positive stool. ASSESSMENT AND PLAN: In summary, this is a 80-year-old man with intermittent episodes of weakness, intermittent episodes of pain between his shoulder blades that last 2 hours, and intermittent episodes of left arm discomfort that occur at rest. His stress test is reassuring but the patient is not convinced that his heart is healthy. I recommended for him to have Ziopatch to see if intermittent episodes of weakness correlate with symptomatic bradycardia and close outpatient followup in clinic. The patient's says she wants him to have a cardiac catheterization, even though his stress test is reassuring. I told her that we will discuss this further during clinic visit, taking into account his surgical anatomy, his prior cardiac catheterization report, and then noninvasive evaluation performed prior to his heart surgery in 2001. Thank you very much for the opportunity to participate in this patient's care.
[2016-10-03] MEDS ORDERED: Pantoprazole 20 mg ER24 Tablet PO SCH (06:30)
== END 2016-10-02 18:53 | disposition home or self-care (01) ==
LOC: SED 08:15 → MPC 10:28
PROVIDERS: ADMIT Internal Medicine; ATTEND Internal Medicine
DX: R07.89 Other chest pain (principal); R06.00 Dyspnea, unspecified; E78.5 Hyperlipidemia, unspecified; I25.810 Atherosclerosis of coronary artery bypass graft(s) without angina pectoris; I10 Essential (primary) hypertension; G47.33 Obstructive sleep apnea (adult) (pediatric); Z87.891 Personal history of nicotine dependence; Z79.82 Long term (current) use of aspirin; Z88.2 Allergy status to sulfonamides; Z95.1 Presence of aortocoronary bypass graft
CPT/HCPCS: 36415; 71010; 78452; 80053; 82274; 83735; 83880; 84484; 85014; 85018; 85025; 85378; 85610; 85730; 85732; 93005; 93017; 96374; 96376; 99285; A9502; G0378; J1644

== ENCOUNTER 2016-11-04 12:43 | Observation (INO) | payer MEDICARE ==
[2016-11-04] VITALS (8 sets, daily range): BP systolic 112–166; BP diastolic 69–83; PULSE 52–73; RESP 12–18; O2SAT 93–98
[~2016-11-04] VITALS: Ht 177.8 cm; Wt 81.5 kg
[~2016-11-04 12:43] MED LIST changes: +ASCO250T7 PO; -ASCO500T7 PO; -ASPI-628 PO; +ASPI-973 PO; -CALC500T61 PO; +CALC500T9 PO; -NITR4.9S5 SL; -OMEP-113 PO; +OMEP20CA11 PO; +VIT1TABL83 PO; -VITA1CAP PO
[2016-11-04] MEDS ORDERED: Nitroglycerin 2% 1 Gm Ointment TOPICAL ONE (13:05)
[2016-11-04] MEDS ORDERED: Heparin 5,000 Unit/mL Inj IVPUSH ONE (13:15)
[2016-11-04] MEDS ORDERED: Heparin 25K Unit/500mL 0.45 NS 25,000 UNIT in IV Premix 1 EACH IV ONE (13:15)
--- NOTE | 2016-11-04 13:15 | ED.REPORT ---
HPI-Chest Pain 40 and Over Date of Service Nov 04, 2016 ED Provider: Taylor Henry MD Patient is an 81 year old male with a history of CAD status post CABG and hypertension who presents to the ED complaining of intermittent chest pain. Associated symptoms include pain that radiates down his left arm and shortness of breath. The patient reports that he has been experiencing progressively worse and more frequent episodes of chest pain since he was discharged from the hospital a month ago. Patient reports that recently the pain and shortness of breath are exacerbated with exertion. He currently rates his pain while at rest as a 3/10. 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 Patient states that his symptoms feel similar to his last heart attack. Nursing Notes Stated Complaint: CHEST PAIN WITH PAIN GOING DOWN LT ARM Chief Complaint: Chest Pain Nursing Notes Reviewed: Yes Allergies: Coded Allergies: Sulfa (Sulfonamide Antibiotics) (Verified Allergy, Severe, Skin rash, 11/04) atenolol (Verified Allergy, Unknown, 11/04/16) atorvastatin (Verified Allergy, Unknown, 11/04/16) Scheduled Amlodipine (Amlodipine) 5 Mg Tablet 5 MG PO HS Ascorbic Acid (Vitamin C) 250 Mg Tab.chew 500 MG PO DAILY Aspirin (Aspirin) 81 Mg Tablet 81 MG PO HS Calcium Carbonate (Tums) 500 Mg Tab.chew 500 MG PO DAILY Cholecalciferol (Vitamin D3) (Vitamin D) 1,000 Unit Tablet 1,000 UNIT PO DAILY Magnesium Oxide (Magnesium) 250 Mg Tablet 250 MG PO DAILY Multivitamin (Once Daily) 1 Each Tablet 1 EACH PO DAILY [place]-3 Fatty Acids/Fish Oil ([place] 3 1,000 mg Softgel) 1 Each Capsule 1 CAPSULE PO DAILY Omeprazole (Omeprazole) 20 Mg Capsule.dr 20 MG PO Every other day Rosuvastatin Calcium (Crestor) 5 Mg Tablet 5 MG PO HS Ubidecarenone (Co Q-10) 100 Mg Capsule 100 MG PO DAILY Vit B Comp/C/FA/Iron/Vit E (Vitamin B Complex Tablet) 1 Each Tablet 1 TAB PO DAILY Zinc Gluconate (Zinc) 50 Mg Tablet 50 MG PO DAILY Scheduled PRN Nitroglycerin SL (Nitrostat) 0.4 Mg Tab.subl 0.4 MG SL Q5MIN PRN PRN For Chest Pain General Time Seen by MD: 13:02 Chief Complaint Chest pain Hx Obtained From: Patient Arrived By: Walk-in Sudden in Onset?: No Onset Occurred: More than a week ago... (1 month) Symptom Duration: Intermittent Location: : Chest left Quality: Painful Radiation: : Arm left Severity: Current: Mild Severity: Maximum: Moderate Recent Healthcare: Recent doctor visit Similar Sx Previous: Yes Past Medical History Past Medical History EDISON Code status: Full code Reports: Coronary artery disease, Hyperlipidemia, Hypertension Past Surgical History cervical fusion rotator cuff Reports: CABG Smoking History Former Smoker Social History Alcohol Use: "Social" Other Social History: Good social support, , From out of town Ambulatory Status Independent Review of Systems Respiratory: Reports: Shortness of breath, Denies: Non-productive cough Cardiovascular: Reports: Chest pain Musculoskeletal: Reports: Extremity pain Complete sys rev & neg: except as marked. Physical Exam Initial Vital Signs Vital Signs (First) Date Time Temp Pulse Resp B/P Pulse Ox O2 Delivery O2 Flow Rate FiO2 11/04/16 12:46 36.6 63 18 166/83 98 Room Air Initial VS: Reviewed General/Constitutional: Awake, Alert Respiratory / Chest: Atraumatic, Breath sounds NL, Breath sounds = bilat, No respiratory distress Cardiovascular: Heart rate NL, Regular rhythm, Heart sounds NL Abdomen: Atraumatic, Soft, Non-tender Lower Extremity / Pelvis / MS: Atraumatic, No edema Skin: Atraumatic, Color NL, No rash, Warm, Dry Neurologic: Oriented X3, Speech NL Head / Eyes: Atraumatic, Normocephalic Interpretation & Diagnostics Lab Results Interpretation Result Diagram: 11/04/16 1315 11/04/16 1315 Test 11/04/16 13:15 White Blood Count 6.3th/mm3 (3.8-10.1) Red Blood Count 4.65mil/mm3 (4.40-5.80) Hemoglobin 15.1g/dL (13.8-17.2) Hematocrit 44.0% (41.0-50.0) Mean Corpuscular Volume 94.6fL (81-100) Mean Corpuscular Hemoglobin 32.5pg (27.0-35.0) Mean Corpuscular Hemoglobin Concent 34.3% (32.0-37.0) Red Cell Distribution Width 12.8% (12.3-15.4) Platelet Count 201bil/L (150-400) Neutrophils (%) (Auto) 61.4% (40-74) Lymphocytes (%) (Auto) 25.1% (14-46) Monocytes (%) (Auto) 9.9% (4-12) Eosinophils (%) (Auto) 3.2% (0-5) Basophils (%) (Auto) 0.2% (0-3) Sodium Level 140mEq/L (134-144) Potassium Level 4.2mEq/L (3.5-5.2) Chloride Level 105mEq/L (97-108) Carbon Dioxide Level 22mmol/L (18-29) Blood Urea Nitrogen 16mg/dL (8-27) Creatinine 0.78mg/dL (0.76-1.27) Estimat Glomerular Filtration Rate 102mL/min (>59) Glucose Level 97mg/dL (60-99) Calcium Level 9.2mg/dL (8.5-10.1) Magnesium Level 2.2mg/dL (1.6-2.6) Total Bilirubin 0.7mg/dL (0.0-1.2) Aspartate Amino Transf (AST/SGOT) 21U/L (0-50) Alanine Aminotransferase (ALT/SGPT) 18U/L (0-44) Alkaline Phosphatase 51U/L (25-160) Troponin T < 0.010ug/L (0.0-0.011) Pro-B-Type Natriuretic Peptide 70.35pg/mL (0-486) Total Protein 7.1g/dL (6.4-8.4) Albumin 4.7g/dL (3.4-5.0) ECG Interpretation ECG Interpretation: probable left atrial enlargement Time: 12:55 Interpreted by: ED physician Normal ECG Interpretation: Normal rate (57), Normal sinus rhythm X-Ray Chest Interpretation Chest Xray Interpretation: IMPRESSION: 1. Probable atelectasis in the left lung base. No definite acute cardiopulmonary disease. Dictated by: Best Araujo M.D. on 11/04/2016 at 13:44 Approved by: Best Araujo M.D. on 11/04/2016 at 13:58 Interpretation / Wet Read by: Interpret - Radiologist Re-Eval/Medical Decision Med Decision/Clinical Course Reviewed records, outpatient cardiology notes concerned chest pain as a manifestation of his cardiac issues and diagnostic cath scheduled in two day. With progressive chest pain, dyspnea, fatigue with less exertion and then today at rest patient didn't feel comfortable waiting till Friday. In the emergency room pain was resolved with sublingual nitroglycerin and Nitropaste. He was started on heparin. Cardiology was consulted will be admitted to the hospitalist service this point is not having a STEMI does have significant risk factors and his having fairly classic unstable angina with progressive symptoms since recent hospital discharge. Time of Eval: 13:20 Re-Evaluation/Progress Note: Discussed plan to consult cardiology and admit to the hospitalist. Patient understands and agrees to plan. All questions were addressed. Consultation #1: Referral / Consult Name: Anil Chase PA-C Consulted With: Cardiology Call Returned at: 13:29 Special Needs Librarian: Will see patient, Agrees with eval, Agrees with plan Consultation #2: Referral / Consult Name: Paul Covington Consulted With: Hospitalist Call Returned at: 13:40 Special Needs Librarian: Agrees with eval, Agrees with plan, Accepts admit Counseled Regarding: Diagnosis, Lab results, Need for admission Discharge & Departure Primary Impression: Chest pain Chest pain type: unspecified Qualified Code: R07.9 - Chest pain, unspecified Disposition: ADMITTED TO HOSPITAL Discharge Condition All VS Reviewed: Yes Condition: Stable Referrals: NOPCP (PCP) Scribe Attestation Portions of this note were transcribed by Marie Goodwin. I, Dr. Henry personally performed the history, physical exam and medical decision-making; I reviewed and confirmed the accuracy of the information in the transcribed note. Signed by: Jasmeet Loja, 11/04/16. copies to: Stacy Juarez MD, Shawna L MD Nov 04, 2016 13:15 Susaan Goodwin Nov 04, 2016 13:21
[2016-11-04 13:23] LABS: BASOPHILS % (AUTO) 0.2 % (0-3); EOSINOPHILS % (AUTO) 3.2 % (0-5); MONOCYTES % (AUTO) 9.9 % (4-12); Mean Corpuscular Hemoglobin 32.5 pg (27.0-35.0); Mean Corpuscular Volume 94.6 fL (81-100); NEUTROPHILS % (AUTO) 61.4 % (40-74); Platelet Count 201 bil/L (150-400)
[2016-11-04 14:00] LABS: Magnesium 2.2 mg/dL (1.6-2.6); TROPONIN T < 0.010 ug/L (0.0-0.011)
--- NOTE | 2016-11-04 14:00 | DRSVH ---
PROCEDURE: X-RAY CHEST ONE VIEW, PORTABLE ([id number]) INDICATIONS: chest pain TECHNIQUE: One view of the chest was acquired. COMPARISON: [facility], CR, XR CHEST 1VW (PORTABLE), 10/01/2016, 8:16. FINDINGS: Surgical changes and devices: Post-surgical changes are redemonstrated in the mediastinum including 2 disrupted median sternotomy wires. Lungs and pleura: No pleural effusions or pneumothorax. There are linear opacities in the left lung base likely representing atelectasis. Mediastinum: Mediastinal contours appear normal. Heart size is normal. Bones and chest wall: No suspicious bony lesions. Overlying soft tissues appear unremarkable. IMPRESSION: 1. Probable atelectasis in the left lung base. No definite acute cardiopulmonary disease. Dictated by: Best Araujo M.D. on 11/04/2016 at 13:44 Approved by: Best Araujo M.D. on 11/04/2016 at 13:58
[2016-11-04] MEDS ORDERED: ZINC50TA4 PO (14:11)
[2016-11-04] MEDS ORDERED: MULT-666 PO (14:11)
[2016-11-04] MEDS ORDERED: MAGN250T29 PO (14:11)
[2016-11-04] MEDS ORDERED: Alum-Mag Hydrox-Simeth 30 mL Suspension PO PRN ×2 (14:50→17:00)
[2016-11-04] MEDS ORDERED: Ondansetron 2 mg/mL 2 mL Inj IVPUSH PRN ×2 (14:50→17:00)
--- NOTE | 2016-11-04 15:16 | NUR ---
admit nurse note receiving rn on [facility] mavis thompson notified that patient uses cpap at home and that will try to bring it in today if possible.
[2016-11-04 16:14] LABS: APPEARANCE,URINE CLEAR (CLEAR,HAZY); COLOR,URINE YELLOW (YELLOW); OCCULT BLOOD,URINE NEGATIVE (NEGATIVE); UROBILINOGEN,URINE NORMAL (NORMAL)
[2016-11-04] MEDS ORDERED: Polyethylene Glycol (PEG) 17 Gm Powder PO PRN (17:00)
--- NOTE | 2016-11-04 17:08 | PCM.HPMED ---
Subjective Date of Service Nov 04, 2016 Primary Provider: Admitting Physician: Paul Covington Primary Care Physician: Bev Attending Physician: Paul Covington Chief Complaint: Chest pain History of Present Illness: 80-year-old male with history of hx of HTN obstructive sleep apnea on nocturnal CPAP, CAD s/p CABG presents with complaint of acute episode of chest pain today that has been recurrent episode for him for the past two months. He was sitting at his job today when he started having a mid-sternal chest pain which he describes as a pressure type pain radiating down his left arm. He denies any other associated symptoms such as nausea, vomiting, diaphoresis or lightheadedness. He also denies any shortness of breath associated with the chest pain though notes that over the past 2 months has been having ongoing dyspnea with minimal exertion like walking his dog which is quite unusual for him given up until two months ago he was able to carry several boxes up the stairs at work without any shortness of breath. He says that 15 years ago when he was diagnosed with CAD that lead to his CABG his only symptom was dyspnea on exertion and at that time he was not having any chest pain. Of note, he was hospitalized at our hospital just one month ago (10/01/16) with similar presentation and at that time he underwent a stress test that was negative. Dr. Juarez from cardiology was consulted during last hospitalization and she followed up with the patient as outpatient with Lila to see if intermittent episodes of weakness correlate with symptomatic bradycardia and was planning on an elective cardiac catheterization this coming Friday as outpatient. In the ED patient was seen by cardiology consult (Dr. Chase) and per my discussion with him the tentative plan is to pursue a cardiac cath tomorrow morning. Currently patient reports a 1 out of 10 chest discomfort and otherwise denies any other discomfort. He was started on Heparin drip in the ED. Review of Systems: Constitutional: Negative, except as otherwise mentioned in the history above. Ophthalmologic: Negative, except as otherwise mentioned in the history above. Cardiovascular: Negative, except as otherwise mentioned in the history above. Respiratory: Negative, except as otherwise mentioned in the history above. Gastrointestinal: Negative, except as otherwise mentioned in the history above. Genitourinary: Negative, except as otherwise mentioned in the history above. Musculoskeletal: Negative, except as otherwise mentioned in the history above. Neurological: Negative, except as otherwise mentioned in the history above. Psychiatric: Negative, except as otherwise mentioned in the history above. Hematologic/Lymphatic: Negative, except as otherwise mentioned in the history above. Allergic/Immunologic: Negative, except as otherwise mentioned in the history above. Allergies Coded Allergies: Sulfa (Sulfonamide Antibiotics) (Verified Allergy, Severe, Skin rash, 11/04) atenolol (Verified Allergy, Unknown, 11/04/16) atorvastatin (Verified Allergy, Unknown, 11/04/16) Home Medications Amlodipine (Amlodipine) 5 Mg Tablet 5 MG PO DAILY Ascorbic Acid (Vitamin C) 500 Mg Tab.chew 500 MG PO DAILY Aspirin (Aspir 81) 81 Mg Tablet.dr 81 MG PO DAILY Calcium Carbonate (Calcium) 500 Mg Tablet 500 MG PO DAILY Cholecalciferol (Vitamin D3) (Vitamin D) 1,000 Unit Tablet 1,000 UNIT PO DAILY [place]-3 Fatty Acids/Fish Oil ([place] 3 1,000 mg Softgel) 1 Each Capsule 1 EACH PO DAILY Omeprazole Magnesium (Omeprazole) 20 Mg Capsule.dr 20 MG PO every other day Rosuvastatin Calcium (Crestor) 5 Mg Tablet 5 MG PO HS Ubidecarenone (Co Q-10) 100 Mg Capsule 100 MG PO DAILY Vitamin B Complex (Vitamin B Complex) 1 Each Capsule 1 EACH PO DAILY Scheduled PRN Nitroglycerin SL (Nitrostat) 0.4 Mg Tab.subl 0.4 MG SL Q5MIN PRN PRN For Chest Pain PMH EDISON CAD s/p CABG at age 65 Hyperlipidemia Hypertension Surgical History cervical fusion rotator cuff CABG Family History Both parents with history of heart disease. Father underwent CABG at age 64 ( same age that patient had his CABG) Social History Hx Alcohol Use: Yes (1-2 drinks nightly) Hx Substance Use: No Smoking Status: Former Smoker (quit in 1968) Living Arrangement: with Family Exam Vital Signs Vital Sign - Last Date Time Temp Pulse Resp B/P Pulse Ox O2 Delivery O2 Flow Rate FiO2 11/04/16 15:53 36.5 71 18 113/69 93 Room Air General: Alert, Oriented X3, Cooperative, No Acute Distress Head: Normal Eyes: PERRLA, EOMI, Scleral Anicteric Nose: Mucous Membr Moist/[place] Mouth: Mucous Membr Moist/[place] Neck: Supple Chest & Lungs: Chest Wall Normal, Clear to auscultation & percussion Cardiovascular: Regular Rate/Rhythm Pulses: NL carotid, radial, femoral, DP, PT Abdomen: Non-tender, Non-distended, Normoactive bowel tones, Soft Extremities: No cyanosis/clubbing/edma bilat Skin: Other (no ulcer/rash) Neurological: Grossly Neurologically Intact, Cranial Nerves 2-12 Intact, Normal Speech Additional Information: Psych: Calm, appropriate Lab and Diagnostics Result Diagram: 11/04/16 1315 11/04/16 1315 X-Rays, CTs and MRIs Date of Service: 11/04/16 1305 PROCEDURE: X-RAY CHEST ONE VIEW, PORTABLE ([id number]) IMPRESSION: 1. Probable atelectasis in the left lung base. No definite acute cardiopulmonary disease. Dictated by: Best Araujo M.D. on 11/04/2016 at 13:44 Approved by: Best Araujo M.D. on 11/04/2016 at 13:58 12-lead ECG NSR at about [address] elevation/depression. Assessment & Plan 80-year-old male with history of hx of HTN obstructive sleep apnea on nocturnal CPAP, CAD s/p CABG presents with complaint of acute episode of chest pain that has been a recurrent episode for him for the past two months. # Acute chest pain concerning for possible unstable angina, present on admission. - Even though his negative Trop and recent negative stress test just one month ago is reassuring his significant history of CAD, ongoing dyspnea on exertion which is similar to his symptoms prior to his CABG are somewhat worrisome - Appreciate cardiology consult. Will followup with recs - Tentative plan is for cardiac cath in AM - Continue with heparin drip for now given reporting ongoing mild chest discomfort at this time - Continue to trend Trop overnight - Check fasting lipid panel in AM - Continue with home dose baby ASA and Statin # History of hypertension. Stable. - Continue with home dose Amlodipine # History of EDISON on CPAP - Continue with home setting CPAP in hospital # History of CAD s/p CABG - Plan as noted above Expected length of hospital stay is less than 2 midnights and possibly home tomorrow if cardiac cath found to be unremarkable. GI Prophylaxis: Proton Pump Inhibitor VTE Prophylaxis: SCDs, Other (on heparin drip) Resuscitation Status: CPR: Attempt Resuscitation (discussed and verified with patient) Time spent 60 min Paul Covington Nov 04, 2016 17:08
[2016-11-04] MEDS: Sodium Chloride LOK Flush 10 mL Syringe IVFLUSH SCH (18:11)
--- NOTE | 2016-11-04 18:13 | NUR ---
Admit Pt. was transferred from ER. On arrival, he was alert, oriented, pain free, and ambulatory. Tele showed SR. Heparin cardiac protocol) is infusing at 1000 unit/hr. PTT check scheduled at 1914 as well as troponin.
--- NOTE | 2016-11-04 18:43 | NUR ---
Case Management: WENDY explained to patient and spouse at 1752, all questions answered. Signed copy placed in chart, copy given to patient. Refused Medicare Part D drug information. Zoraida Coreas RN
--- NOTE | 2016-11-04 20:17 | CONS ---
[address] [address] CONSULTATION REPORT PATIENT: WHITLEY VASQUEZ : 1935 MR#: [id number] ADMIT: 11/04/2016 JOB ID: [id number] DATE OF SERVICE: 11/04/2016 IDENTIFICATION: Dr. Taylor Henry has asked that I consult on this 81-year-old male who presents with ongoing chest discomfort with previous arrangements for an outpatient cardiac catheterization. HISTORY: The patient was found to have fairly extensive coronary artery disease after presenting in 2001 with exertional chest discomfort and dyspnea, with cardiac catheterization revealing a long 70% proximal LAD stenosis with severe disease in the proximal diagonal, as well as a 70% lesion in the first obtuse marginal and a 50% lesion in the PDA. His ejection fraction was 85% and he subsequently underwent CABG with SCHWARZ to the LAD and apparently four separate vein grafts to the diagonal, 1st obtuse marginal, 2nd obtuse marginal, and PDA. He underwent repeat cardiac catheterization in 2005 that showed all of his grafts were widely patent. He was admitted in 2014 with an episode of prolonged but atypical chest pain with normal troponins. An echocardiogram at that time showed mild LVH with mild inferoseptal hypokinesis but was otherwise normal with an ejection fraction of 55% to 60% without any focal wall motion abnormality. Subsequent myocardial perfusion imaging showed normal LV systolic function without any focal wall motion abnormality. He was subsequently followed by Dr. Juarez, but the patient failed followup. He was subsequently diagnosed with moderate sleep apnea and has been started on CPAP treatment. He was admitted on October 01, 2016, with a one-week history of increasing progressive exertional dyspnea, weakness, and fleeting chest discomfort, described as lasting less than 10 seconds. He again ruled out with negative serial troponins and underwent exercise myocardial perfusion imaging which showed excellent exercise capacity with an JEREL of negative 40% without any chest discomfort and only minimal ST depression in the inferior leads. His ejection fraction was 68% without any focal abnormality and there was a fixed inferolateral defect that resolved on prone imaging, felt most likely to reflect attenuation artifact without any evidence for ischemia. The requested a cardiac catheterization because of her concerns, but the patient was discharged and saw Dr. Juarez in followup on October 18, 2016, when the patient described more prolonged chest discomfort, and therefore a catheterization was scheduled to take place on November 06, 2016. Since his visit with Dr. Juarez, he continues to have intermittent mid chest pressure, occasionally radiating to the left arm and rarely radiating to the midscapular area. It typically comes on at rest, and is not clearly associated with exertion and occurs more frequently after his evening meal. It was lasting typically 5-10 minutes, but over the past week has become more prolonged, lasting 1-2 hours. He continues to complain of exertional dyspnea but denies any dyspnea during this chest pain and has had no diaphoresis or nausea. Yesterday, he took his dog for a walk and again noted what he felt was the significant exertional dyspnea with a sense of a slight chest pressure. He came home and rested but had progressive chest discomfort lasting 20-30 minutes and subsequently lingering throughout the day and fell asleep with a slight discomfort but awoke this morning without any chest pain. However, it returned about mid morning around 10:45 and has continued to wax and wane since then, at times being stronger and radiating into his left arm. Given this, he presented to the ER where he was noted to be mildly hypertensive at 166/83 with ongoing chest discomfort, but his ECG appears normal with a sinus rhythm at 57 with probable LVH and a mild repolarization abnormality and an isolated T-wave inversion in lead V2, which is unchanged from his previous ECGs. His troponins have remained normal. He was given one sublingual nitroglycerin with complete relief of the discomfort and has not returned since then. He reports his blood pressures at home have generally been in the 115-130 range. CARDIAC RISK FACTORS: Notable for hypertension and hyperlipidemia. There is no history of any diabetes. He smoked one pack per day for 15 years but none for the past 40 years. FAMILY HISTORY: Notable for a father requiring a CABG at age 64. PAST MEDICAL HISTORY: Notable for obstructive sleep apnea. He has had neck surgery in the distant past. He has had rotator cuff surgery. HOME MEDICATIONS: 1. Amlodipine 5 mg daily. 2. Aspirin 81 mg daily. 3. Crestor 5 mg daily. 4. CoQ10 100 mg daily. 5. Omeprazole 20 mg every other day. 6. Multiple vitamins and supplements. ALLERGIES: SULFA MEDICATIONS. FAMILY HISTORY: As above but otherwise noncontributory. SOCIAL HISTORY: The patient lives with his in an , currently residing at [facility] in [place]. He admits to 2-3 alcoholic beverages per night. REVIEW OF SYSTEMS: A complete review is performed and is notable for the absence of any fevers or chills. He has had no weight change. He has had no pedal edema. He denies any vision change. He has had some chronic sinusitis but no ENT problems otherwise. Denies any cough or hemoptysis. No history of any peptic ulcer disease. He reports some heme-positive stool detected at his last hospitalization but he has never noticed this. Denies any genitourinary complaints or hematuria. Denies any musculoskeletal complaints. Denies any neurologic symptoms or any history of thyroid or bleeding disorder. Denies any unusual anxiety or depression. PHYSICAL EXAMINATION: Pleasant, healthy-appearing, elderly, white male, appears younger than his stated age. HR 80. BP 138/71. O2 saturation 94% on room air. Skin: Warm and dry. HEENT: EOMI, without significant arcus. Dentition in fair repair. Lungs: Clear bilaterally to auscultation and percussion without any rales or wheeze. CV: Nonpalpable PMI with a regular rate and rhythm with a normal S1 and S2. There is a 1/6 systolic murmur at the lower sternal border but otherwise no murmurs. There is no gallop. JVP is 3-4 cm. Carotid and femoral pulses are all 2+ with a normal upstroke and no bruit. Dorsalis pedis is 1+ on the right, 2+ on the left, and posterior tib pulses are nonpalpable bilaterally. Abdomen: Soft, nondistended, nontender, without any palpable masses or organomegaly. Normal bowel tones are present without bruits. Extremities: Warm, without any clubbing, cyanosis, or edema. Neuro: Moves all four extremities. Psych: Awake, alert, and oriented. LABORATORY: White count is 6.3 with hematocrit of 44%. Sodium is 140 with a potassium 4.2, and a BUN of 16 and a creatinine 0.8. LFTs are normal. Troponins are normal. ProBNP is normal at 70. Chest x-ray: Clear lung arroyo with normal cardiac size. ECG: As above. IMPRESSION: 1. Somewhat atypical chest discomfort with a history of coronary artery disease. I think that the likelihood that his pain reflects angina is fairly low, given his excellent exercise capacity and relatively normal myocardial perfusion imaging study. This is supported by the absence of any troponin leak with any of his hospitalizations. Yet, he and his are extremely concerned because his symptoms are "identical" to at the time of his bypass surgery. In addition, his myocardial perfusion imaging study did have some abnormalities which were thought to most likely reflect attenuation artifact, so it is not completely normal. Given this, and predominantly because of patient's concern, I will attempt to move up his cardiac catheterization to tomorrow, although would not be surprised if there is no significant coronary disease. In that situation, I would suspect that he may have some reflux or dyspepsia given the association with food. If he does have a critical coronary lesion, then stenting can be performed, hopefully. Dr. Juarez does not appear to be available tomorrow and therefore, I will try to contact Dr. Hennessy to see if can pursue angiography. I have discussed the cardiac catheterization with the patient, on which he is well versed, given his previous cardiac catheterizations. He understands the risks and alternatives and wishes to proceed. 2. Hypertension. Currently under fairly good control. 3. Hyperlipidemia. I would continue with his Crestor. I do not have any of his recent lipid data currently at hand, but his LDL should be targeted to be less than 70. 4. Obstructive sleep apnea. Echocardiography could be considered to assess for pulmonary artery pressures if his cardiac catheterization is benign. PLAN: 1. Continue home medications. 2. IV heparin and nitrates until cardiac catheterization tomorrow. 3. Further recommendations dependent upon those results. 4. Consider echocardiogram if his cardiac catheterization is benign. I spent 1 hour and 17 minutes reviewing the patient's old medical history, interviewing and examining the patient, and answering his questions.
[2016-11-05] VITALS (23 sets, daily range): BP systolic 105–150; BP diastolic 44–89; PULSE 53–80; RESP 11–23; O2SAT 89–98
[2016-11-05] MEDS: Sodium Chloride LOK Flush 10 mL Syringe IVFLUSH SCH ×4 (00:50→23:31)
[2016-11-05 01:32] LABS: INR 1.01 ratio
[2016-11-05 02:05] LABS: TROPONIN T 0.01 ug/L (0.0-0.011)
[2016-11-05] MEDS ORDERED: 0.9% Sodium Chloride 1,000 ML IV ONE (06:00)
--- NOTE | 2016-11-05 06:29 | NUR ---
Cardiac/Resp/GI Patient c/o 02/19 chest pain at start of shift, denied need for pain meds, fell asleep and woke up with chest pain radiating to his back, Dr. Alonso notified and Nitro SL given, BP 130/77 and remained stable after nitro, Troponin <0.010, CP slowly came back and is currently 2-3 but patient is declining Nitro, "Ill call if it gets worse" got a little sleep last light, Heparin gtt infusing at 975 units/hr. Addendum: 11/05/16 at 0636 by RAMON WATKINS RN Amended: Links added.
[2016-11-05] MEDS ORDERED: Pantoprazole 20 mg ER24 Tablet PO SCH (07:30)
[2016-11-05] MEDS ORDERED: Heparin 1,000 Units/500 mL NS Premix IV ONE (09:12)
[2016-11-05] MEDS ORDERED: Heparin 1,000 Unit/mL 10 mL Inj ONE (09:12)
[2016-11-05] MEDS ORDERED: Heparin 10,000 Unit/1,000 mL NS Premix IV ONE ×2 (09:12→10:20)
[2016-11-05] MEDS ORDERED: Nitroglycerin 50,000 mcg/250 mL D5W Premix IV ONE (09:15)
[2016-11-05] MEDS ORDERED: fentaNYL-PF 50 mCg/mL 2 mL Inj ONE (09:23)
--- NOTE | 2016-11-05 11:00 | NUR ---
POST PROCEDURE NOTE FROM RIFFLER TENDER. SEE FLOW SHEET
--- NOTE | 2016-11-05 11:02 | CS94 ---
[address] [address] DIAGNOSTIC CARDIAC CATHETERIZATION PATIENT: WHITLEY VASQUEZ : 1935 MR#: [id number] ADMIT: 11/04/2016 JOB ID: [id number] SERVICE DATE: PROCEDURE: 1. Selective right and left coronary angiography. 2. Left heart catheterization. 3. Saphenous vein angiography. 4. Left internal mammary artery angiography. INDICATION: Recurrent chest pain. PROCEDURAL DETAILS: The reader and the coders are referred to the procedure log for complete details. Briefly, it was done via right femoral approach using a 6-Austrian system. SCHWARZ cannulation was rather difficult because of marked tortuosity and adverse takeoff of the subclavian. ANGIOGRAPHIC FINDINGS: 1. Left main 20% disease. No critical stenosis. 2. LAD is diffusely diseased in its ostium and proximal portion. It has a tubular stenosis of 70% to 80% past the first septal. Past the first major diagonal it has a 90% lesion. Competitive flow is noted in the distal vessel. 3. Circumflex is a nondominant vessel. It has a tubular stenosis of about 60% in its proximal part. The ongoing circumflex has long area of diffuse disease. 4. Retrograde filling of a vein graft is noted upon left main injections. 5. Right coronary artery. The right coronary artery is a dominant vessel. It is tortuous. It has an 80% lesion in its mid segment. Competitive flow is noted in the distal vessel. 6. Saphenous vein graft to right coronary artery is severely ectatic and has diffuse degeneration. It is, however, patent and supplies the distal RCA. 7. Saphenous vein graft to the diagonal is occluded. 8. Saphenous vein graft to presumably an OM is occluded. 9. Saphenous vein graft to an obtuse marginal branch. It appears to be a skip graft from OM1 to OM2. It is patent. In its proximal part, it has a tubular stenosis of about 70%. In its mid segment, it has an eccentric 60% to 70% lesion. The graft distal to this second lesion is diffusely ectatic and thereby leads one to overestimate the severity of this saphenous vein graft. 10. SCHWARZ to LAD is patent. 11. Left heart catheterization revealed an LVEDP of 13. There was no gradient upon pullback. LVEF is normal and is estimated to be 65%. SUMMARY: This gentleman has preserved left ventricular function. His left internal mammary artery to left anterior descending is patent. His right coronary graft, though severely diseased, is still patent. The obtuse marginal graft is a skip graft and is patent with moderately severe disease. The other two grafts appear to be occluded. Despite this, I would consider him to be adequately revascularized. My first recommendation would be to optimize his medical therapy. If he still has chest discomfort despite optimal medical therapy, consideration can be given to intervening on his circumflex graft. The circumflex graft is supplying two vessels. It is old, degenerated graft, and there is a risk for distal embolization. This will be explained to the patient before embarking upon any intervention. Also, given the atypical nature of his chest discomfort, it might be worthwhile getting a gastroenterology consultation and possibly, an upper endoscopy.
--- NOTE | 2016-11-05 11:12 | NUR ---
Social Work: Initial Assessment/Multidisciplinary Rounds D: Per EMR review, patient is an 81 year old male admitted for ACS. Patient is Medicare with AARP supp and no LTC or VA benefits. PCP is not listed. Advanced directives not completed- information provided. NOK is Concetta Brady, , . Readmit score is low, 2/8. Pt discussed in Multidisciplinary rounds. Capacity for self care discussed; no concerns or needs at this time. ASSISTANT EXECUTIVE HOUSEKEEPER met with the patient at bedside. Social work/dcp role explained, contact information and discharge planning checklist provided. See initial assessment. 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 They travel between [facility] and [place] yearly. The patient has never had HH or skilled rehab. Patient is I with ADLs and self-care at baseline and uses no DME. Patient continues to drive and expresses no concerns about his d/c home when ready. Pt is receptive to discharge planning but does not feel he will need anything. A: Pt who is I at baseline. P: Evolving; Anticipate discharge home via POV once medically stable. ASSISTANT EXECUTIVE HOUSEKEEPER to continue to follow to assess for unmet d/c needs. YUDY Mcnamara Addendum: 11/05/16 at 1115 by STEPHAN HERNÁNDEZ Amended: Links added.
[2016-11-05] MEDS ORDERED: Pantoprazole 40 mg ER24 Tablet PO ONE (13:45)
--- NOTE | 2016-11-05 15:30 | NUR ---
TRANSFERED TO [facility]. REPORT GIVEN
[2016-11-05] MEDS ORDERED: Ondansetron 2 mg/mL 2 mL Inj IVPUSH PRN (16:00)
[2016-11-05] MEDS ORDERED: 0.9% Sodium Chloride 250 ML BOLUS IV PRN (16:00)
[2016-11-05] MEDS ORDERED: Sodium Chloride LOK Flush 10 mL Syringe IVFLUSH PRN (16:00)
[2016-11-05] MEDS ORDERED: Atropine 1 mg/10 mL (Code) Syringe IVPUSH PRN (16:00)
[2016-11-05] MEDS ORDERED: 0.9% Sodium Chloride 400 ML (4 HRS) IV ONE (16:00)
--- NOTE | 2016-11-05 16:13 | NUR ---
[facility] Pt arrived to [facility] via bed at approximately 1535. Report taken from May SOTO RN. Pt AOx3. BP 126/99, HR 65, RA SPO2 93%, RR 26. Pt resting in bed, at bedside. Care continues.
--- NOTE | 2016-11-05 16:13 | PCM.PNMED ---
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 He has no current complaints. Exam Vital Signs Vital Sign - Last Date Time Temp Pulse Resp B/P Pulse Ox O2 Delivery O2 Flow Rate FiO2 11/05/16 14:30 80 23 138/89 Room Air 11/05/16 14:00 96 11/05/16 13:44 1.00 11/05/16 07:59 36.6 Intake and Output 11/04/16 11/04/16 11/05/16 Cumulative From/Thru 15:00 23:00 07:00 11/04/16 12:46 - 11/05/16 06:21 Intake Total 1306 ml 1306 ml Output Total 1950 ml 1950 ml Balance -644 ml -644 ml Intake Oral 1000 ml 1000 ml IV Total 306 ml 306 ml Output Urine Total 1950 ml 1950 ml Exam Constitutional: Elderly male in no acute distress Head: Normocephalic atraumatic Chest: Clear to auscultation Cor: Regular rate and rhythm S1-S2 without murmur Abdomen: Soft nontender bowel sounds present Extremities: No pedal edema Psych: Mood and affect appropriate Neuro: Alert and oriented 3, motor strength is intact bilaterally IVs and Medications Medications Reviewed: Medications were reviewed in detail Lab and Diagnostics Result Diagram: 11/04/16 1315 11/05/16 0005 X-Rays, CTs and MRIs Date of Service: 11/04/16 1305 PROCEDURE: X-RAY CHEST ONE VIEW, PORTABLE ([id number]) IMPRESSION: 1. Probable atelectasis in the left lung base. No definite acute cardiopulmonary disease. Dictated by: Best Araujo M.D. on 11/04/2016 at 13:44 Approved by: Best Araujo M.D. on 11/04/2016 at 13:58 12-lead ECG NSR at about [address] elevation/depression. Additional Diagnostics SERVICE DATE: PROCEDURE: 1. Selective right and left coronary angiography. 2. Left heart catheterization. 3. Saphenous vein angiography. 4. Left internal mammary artery angiography. INDICATION: Recurrent chest pain. PROCEDURAL DETAILS: The reader and the coders are referred to the procedure log for complete details. Briefly, it was done via right femoral approach using a 6-Nepali system. SCHWARZ cannulation was rather difficult because of marked tortuosity and adverse takeoff of the subclavian. ANGIOGRAPHIC FINDINGS: 1. Left main 20% disease. No critical stenosis. 2. LAD is diffusely diseased in its ostium and proximal portion. It has a tubular stenosis of 70% to 80% past the first septal. Past the first major diagonal it has a 90% lesion. Competitive flow is noted in the distal vessel. 3. Circumflex is a nondominant vessel. It has a tubular stenosis of about 60% in its proximal part. The ongoing circumflex has long area of diffuse disease. 4. Retrograde filling of a vein graft is noted upon left main injections. 5. Right coronary artery. The right coronary artery is a dominant vessel. It is tortuous. It has an 80% lesion in its mid segment. Competitive flow is noted in the distal vessel. 6. Saphenous vein graft to right coronary artery is severely ectatic and has diffuse degeneration. It is, however, patent and supplies the distal RCA. 7. Saphenous vein graft to the diagonal is occluded. 8. Saphenous vein graft to presumably an OM is occluded. 9. Saphenous vein graft to an obtuse marginal branch. It appears to be a skip graft from OM1 to OM2. It is patent. In its proximal part, it has a tubular stenosis of about 70%. In its mid segment, it has an eccentric 60% to 70% lesion. The graft distal to this second lesion is diffusely ectatic and thereby leads one to overestimate the severity of this saphenous vein graft. 10. SCHWARZ to LAD is patent. 11. Left heart catheterization revealed an LVEDP of 13. There was no gradient upon pullback. LVEF is normal and is estimated to be 65%. SUMMARY: This gentleman has preserved left ventricular function. His left internal mammary artery to left anterior descending is patent. His right coronary graft, though severely diseased, is still patent. The obtuse marginal graft is a skip graft and is patent with moderately severe disease. The other two grafts appear to be occluded. Despite this, I would consider him to be adequately revascularized. My first recommendation would be to optimize his medical therapy. If he still has chest discomfort despite optimal medical therapy, consideration can be given to intervening on his circumflex graft. The circumflex graft is supplying two vessels. It is old, degenerated graft, and there is a risk for distal embolization. This will be explained to the patient before embarking upon any intervention. Also, given the atypical nature of his chest discomfort, it might be worthwhile getting a gastroenterology consultation and possibly, an upper endoscopy. Adam Hennessy MD 11/05/16 1033 Report status: Draft Transcribed by: DENAE 11/05/16 1100 REPORT#: [id number] cc: PCP, NO ; Adam Hennessy MD Assessment & Plan 80-year-old male with history of hx of HTN obstructive sleep apnea on nocturnal CPAP, CAD s/p CABG presents with complaint of acute episode of chest pain that has been a recurrent episode for him for the past two months. # Acute chest pain concerning for possible unstable angina, present on admission. - Even though his negative Trop and recent negative stress test just one month ago is reassuring his significant history of CAD, ongoing dyspnea on exertion which is similar to his symptoms prior to his CABG are somewhat worrisome - Appreciate cardiology consult. Will followup with recs -Please see cardiac catheterization report as noted above. Per cardiology recommendations will go ahead and initiate beta adrienne metoprolol 12.5 mg by mouth twice a day and continue with ASA 81 mg by mouth daily -Continue with rosuvastatin -Given also thought of possible related to GI etiology we will increase Protonix to 40 mg by mouth daily. -Further recommendations per cardiology # History of hypertension. Stable. - Continue with home dose Amlodipine # History of EDISON on CPAP - Continue with home setting CPAP in hospital # History of CAD s/p CABG - Plan as noted above Expected length of hospital stay is less than 2 midnights and possibly home tomorrow if cardiac cath found to be unremarkable. GI Prophylaxis: Proton Pump Inhibitor VTE Prophylaxis: SCDs, Other (on heparin drip) Resuscitation Status: CPR: Attempt Resuscitation (discussed and verified with patient) Time spent 30 minutes Elizabeth Dunn MD Nov 05, 2016 16:13
--- NOTE | 2016-11-05 18:06 | NUR ---
Chest pain Pt states off and on experiencing intermittent sharp pains. Pt states 3/10 pain, pt states he "did not use call light because it wasn't that bad". Encouraged pt to use call light, in room during education. Pt declines pain medication at this time. Care continues.
[2016-11-05] MEDS: Pantoprazole 20 mg ER24 Tablet PO SCH (19:57)
[2016-11-06 03:21] VITALS: BP 122/69; PULSE 48; RESP 15; O2SAT 96
--- NOTE | 2016-11-06 04:36 | NUR ---
S/P Heart Cath Pt had mild generalized chest pain at the beginning of the shift, medicated with PO Tylenol 975mg and pain resolved. Right groin site bio-occlusive dressing intact, no hematoma or active bleeding noted. Groin site mildly tender to palpation, denies pain with standing or with ambulation. Pedal pulses palpable. Pt denies abdomen or flank pain. Tele SB-SR with occ PACs. HR mostly in the 50-70s with HR down into the 40s while sleeping, per Detention Attendant. RA sats at HS only 92-93% on RA with hx of EDISON and CPAP, Pt placed on O2 @ 2L NC and SpO2 sats maintained at 95-96% per continuous pulse oximetry all night.
--- NOTE | 2016-11-06 06:45 | NUR ---
Assumed care Assumed care at approximately 0645, pt resting asking when he can leave. Reported to MD. Pt denies CP, SOB, groin site C/D/I, no hematoma, no bleeding. Bilateral pulses palpable. Encouraged ambulation. Care continues.
[2016-11-06 09:00] VITALS: BP 131/79; PULSE 67; O2SAT 95
[2016-11-06] MEDS: Sodium Chloride LOK Flush 10 mL Syringe IVFLUSH SCH (09:25)
[2016-11-06] MEDS: Pantoprazole 20 mg ER24 Tablet PO SCH (09:26)
[2016-11-06 10:02] VITALS: PULSE 75
[2016-11-06] MEDS ORDERED: METO25TA6 PO ×2 (11:04→12:37)
[2016-11-06] MEDS ORDERED: CLOP75TA28 PO (11:04)
--- NOTE | 2016-11-06 11:09 | PCM.DIMED ---
Discharge Instructions Date of Service Nov 06, 2016 Dates of Hospitalization Nov 04, 2016 at 14:10 Discharge Diagnosis Discharge Diagnosis unstable angina, present on admission. hypertension. Stable. EDISON on CPAP CAD s/p CABG . Medication Instructions Additional med instructions We have added 2 medications to your regimen, Plavix 75 mg daily which is a blood thinner that works with Aspirin to help prevent clots, and Metoprolol which will help your heart to not work as hard which reduced the stress upon it. Test Results Test Results You underwent Cardiac Catheterization, and while it appeared that you have a significant amount of disease in your Coronary arteries, none of them appeared amenable to intervention. Therefore, we will attempt to manage your symptoms with medications. Diet Discharge Diet: Heart Healthy Activity Discharge Activity: Limited until seen by PCP Call your provider Call your provider for: Fever or Chills, Shortness of breath, Bleeding, Chest pain (worse than normal), Vomitting, Excessive diarrhea, Weakness (unilateral), Other (Any new or concerning symptoms) Patient Instructions Follow-up plan Please follow up with your primary care provider within 2 weeks. Follow-up with PCP in: Other (Patient is a [place] resident and will be returning there for followup) Justin Rabago DO Nov 06, 2016 11:09
[2016-11-06] MEDS ORDERED: CLOP75TA3 PO (12:37)
--- NOTE | 2016-11-06 13:45 | NUR ---
Social Work: Discharge/Multidisciplinary Rounds D: Pt discussed in multidisciplinary rounds; the patient is medically stable for discharge. pt possesses capacity for self-care and has been engaging in his own self care during admission. VACCINE CUSTOMER REPRESENTATIVE met with the patient at bedside to confirm discharge plan and assess for unmet d/c needs. He is dressed and ready to discharge home. Patient ambulating I in his room without use of DME. Pt's is coming to transport him home. No concerns or barriers identified at this time. Bedside RN to complete discharge ppw, teaching and education. A: PT who is I at baseline. P: Pt to discharge home via POV and no sw needs. YUDY Mcnamara
--- NOTE | 2016-11-06 14:52 | NUR ---
Disharge Pt discharged at approximately 1430 to home with . Pt given educational material for Cardiac Catheterization, Plavix and Metoprolol. IVs DC'd with catheters intact. Pt and acknowledged and understood all information. Pt left with all personal belongings. Escorted by MARKET ASSET PROTECTION MANAGER in wheelchair to front door.
--- NOTE | 2016-11-06 17:01 | PCM.DC.MED ---
Discharge Summary Date of Service Nov 06, 2016 Dates of Hospitalization Date of Hospital Admission Nov 04, 2016 at 14:10 Date of Discharge: Nov 06, 2016 Providers: Admitting Physician: Paul Covington Primary Care Physician: Bev Attending Physician: Elizabeth Dunn MD Diagnosis at Time of Discharge Diagnosis at Time of Discharge unstable angina, present on admission. hypertension. Stable. EDISON on CPAP CAD s/p CABG . Procedures XRay, CTs & MRIs Date of Service: 11/04/16 1305 PROCEDURE: X-RAY CHEST ONE VIEW, PORTABLE ([id number]) IMPRESSION: 1. Probable atelectasis in the left lung base. No definite acute cardiopulmonary disease. Dictated by: Best Araujo M.D. on 11/04/2016 at 13:44 Approved by: Best Araujo M.D. on 11/04/2016 at 13:58 ECG 12 Lead NSR at about [address] elevation/depression. Other Diagnostics SERVICE DATE: PROCEDURE: 1. Selective right and left coronary angiography. 2. Left heart catheterization. 3. Saphenous vein angiography. 4. Left internal mammary artery angiography. INDICATION: Recurrent chest pain. PROCEDURAL DETAILS: The reader and the coders are referred to the procedure log for complete details. Briefly, it was done via right femoral approach using a 6-Pashto system. SCHWARZ cannulation was rather difficult because of marked tortuosity and adverse takeoff of the subclavian. ANGIOGRAPHIC FINDINGS: 1. Left main 20% disease. No critical stenosis. 2. LAD is diffusely diseased in its ostium and proximal portion. It has a tubular stenosis of 70% to 80% past the first septal. Past the first major diagonal it has a 90% lesion. Competitive flow is noted in the distal vessel. 3. Circumflex is a nondominant vessel. It has a tubular stenosis of about 60% in its proximal part. The ongoing circumflex has long area of diffuse disease. 4. Retrograde filling of a vein graft is noted upon left main injections. 5. Right coronary artery. The right coronary artery is a dominant vessel. It is tortuous. It has an 80% lesion in its mid segment. Competitive flow is noted in the distal vessel. 6. Saphenous vein graft to right coronary artery is severely ectatic and has diffuse degeneration. It is, however, patent and supplies the distal RCA. 7. Saphenous vein graft to the diagonal is occluded. 8. Saphenous vein graft to presumably an OM is occluded. 9. Saphenous vein graft to an obtuse marginal branch. It appears to be a skip graft from OM1 to OM2. It is patent. In its proximal part, it has a tubular stenosis of about 70%. In its mid segment, it has an eccentric 60% to 70% lesion. The graft distal to this second lesion is diffusely ectatic and thereby leads one to overestimate the severity of this saphenous vein graft. 10. SCHWARZ to LAD is patent. 11. Left heart catheterization revealed an LVEDP of 13. There was no gradient upon pullback. LVEF is normal and is estimated to be 65%. SUMMARY: This gentleman has preserved left ventricular function. His left internal mammary artery to left anterior descending is patent. His right coronary graft, though severely diseased, is still patent. The obtuse marginal graft is a skip graft and is patent with moderately severe disease. The other two grafts appear to be occluded. Despite this, I would consider him to be adequately revascularized. My first recommendation would be to optimize his medical therapy. If he still has chest discomfort despite optimal medical therapy, consideration can be given to intervening on his circumflex graft. The circumflex graft is supplying two vessels. It is old, degenerated graft, and there is a risk for distal embolization. This will be explained to the patient before embarking upon any intervention. Also, given the atypical nature of his chest discomfort, it might be worthwhile getting a gastroenterology consultation and possibly, an upper endoscopy. Adam Hennessy MD 11/05/16 1033 Report status: Draft Transcribed by: DENAE 11/05/16 1100 REPORT#: [id number] cc: PCP, NO ; Adam Hennessy MD Brief History Taken from History and Physical composed by Dr. Covington on 11/04/16 80-year-old male with history of hx of HTN obstructive sleep apnea on nocturnal CPAP, CAD s/p CABG presents with complaint of acute episode of chest pain today that has been recurrent episode for him for the past two months. He was sitting at his job today when he started having a mid-sternal chest pain which he describes as a pressure type pain radiating down his left arm. He denies any other associated symptoms such as nausea, vomiting, diaphoresis or lightheadedness. He also denies any shortness of breath associated with the chest pain though notes that over the past 2 months has been having ongoing dyspnea with minimal exertion like walking his dog which is quite unusual for him given up until two months ago he was able to carry several boxes up the stairs at work without any shortness of breath. He says that 15 years ago when he was diagnosed with CAD that lead to his CABG his only symptom was dyspnea on exertion and at that time he was not having any chest pain. Of note, he was hospitalized at our hospital just one month ago (10/01/16) with similar presentation and at that time he underwent a stress test that was negative. Dr. Juarez from cardiology was consulted during last hospitalization and she followed up with the patient as outpatient with Lila to see if intermittent episodes of weakness correlate with symptomatic bradycardia and was planning on an elective cardiac catheterization this coming Friday as outpatient. In the ED patient was seen by cardiology consult (Dr. Chase) and per my discussion with him the tentative plan is to pursue a cardiac cath tomorrow morning. Currently patient reports a 1 out of 10 chest discomfort and otherwise denies any other discomfort. He was started on Heparin drip in the ED. . Hospital Course 80-year-old male with history of hx of HTN obstructive sleep apnea on nocturnal CPAP, CAD s/p CABG presents with complaint of acute episode of chest pain that has been a recurrent episode for him for the past two months. The patient underwent cardiac catheterization, and was found to have multi-vessel disease mainly affecting the patient's prior CABG grafts, however it was determined that none of these lesions or vessels were candidates for intervention; thus the patient discharged on medical management and instructed to follow up with his primary care provider and regular frame feeder in [place]. unstable angina, present on admission. - Even though his negative Trop and recent negative stress test just one month ago is reassuring his significant history of CAD, ongoing dyspnea on exertion which is similar to his symptoms prior to his CABG are somewhat worrisome - Appreciate cardiology consult. Will followup with recs -Please see cardiac catheterization report as noted above. Per cardiology recommendations will go ahead and initiate beta adrienne metoprolol 12.5 mg by mouth twice a day and continue with ASA 81 mg by mouth daily -Continue with rosuvastatin -Further recommendations per cardiology History of hypertension. Stable. - Continue with home dose Amlodipine History of EDISON on CPAP - Continue with home setting CPAP in hospital History of CAD s/p CABG - Plan as noted above . Exam Vital Signs (Last) Date Time Temp Pulse Resp B/P Pulse Ox O2 Delivery O2 Flow Rate FiO2 11/06/16 10:02 75 11/06/16 09:00 36.5 131/79 95 Room Air 11/06/16 03:21 15 2.00 Exam Gen: A/O x3 pleasant elderly gentleman appearing younger than stated age Neck: Supple, non tender, no JVD HEENT: PERRL, EOMI, no scleral icterus CV: RRR, no murmurs rubs or gallops, well healed old sternotomy scar Resp: Lungs CTA BL, no wheezing rales or rhonchi Abd: Soft, non tender, no rebound masses or guarding Extr: No clubbing cyanosis or edema. Neuro: CN 2-12 grossly intact, no focal neurologic deficit Psych: Pleasant and appropriate mood and affect. . Test 11/04/16 13:15 11/04/16 15:50 11/05/16 00:05 11/05/16 07:15 White Blood Count 6.3th/mm3 (3.8-10.1) Red Blood Count 4.65mil/mm3 (4.40-5.80) Hemoglobin 15.1g/dL (13.8-17.2) Hematocrit 44.0% (41.0-50.0) Mean Corpuscular Volume 94.6fL (81-100) Mean Corpuscular Hemoglobin 32.5pg (27.0-35.0) Mean Corpuscular Hemoglobin Concent 34.3% (32.0-37.0) Red Cell Distribution Width 12.8% (12.3-15.4) Platelet Count 201bil/L (150-400) Neutrophils (%) (Auto) 61.4% (40-74) Lymphocytes (%) (Auto) 25.1% (14-46) Monocytes (%) (Auto) 9.9% (4-12) Eosinophils (%) (Auto) 3.2% (0-5) Basophils (%) (Auto) 0.2% (0-3) Magnesium Level 2.2mg/dL (1.6-2.6) Total Bilirubin 0.7mg/dL (0.0-1.2) Aspartate Amino Transf (AST/SGOT) 21U/L (0-50) Alanine Aminotransferase (ALT/SGPT) 18U/L (0-44) Alkaline Phosphatase 51U/L (25-160) Pro-B-Type Natriuretic Peptide 70.35pg/mL (0-486) Total Protein 7.1g/dL (6.4-8.4) Albumin 4.7g/dL (3.4-5.0) Urine Color Yellow (YELLOW) Urine Appearance Clear (CLEAR,HAZY) Urine pH 6.0 (5.0-8.0) Urine Specific [place] 1.010 (1.003-1.035) Urine Protein Negativemg/dL (NEG,TRACE) Urine Glucose (UA) Negativemg/dL (NEGATIVE) Urine Ketones Negativemg/dL (NEGATIVE) Urine Occult Blood Negative (NEGATIVE) Urine Nitrite Negative (NEGATIVE) Urine Bilirubin Negative (NEGATIVE) Urine Urobilinogen Normalmg/dL (NORMAL) Urine Leukocyte Esterase Trace (NEGATIVE) Urine RBC 0-2/hpf (0-2) Urine WBC 0-5/hpf (0-5) Urine Epithelial Cells Few/hpf (NONE-MOD) Urine Crystals None seen (NONE SEEN) Urine Bacteria Few/hpf (NONE-FEW) Urine Hyaline Casts None/lpf (NONE) Urine Granular Casts None seen (NONE SEEN) Urine Waxy Casts None seen (NONE SEEN) Urine Red Blood Cell Casts None seen (NONE SEEN) Urine White Blood Cell Casts None seen (NONE SEEN) Urine Mucus None seen (None Seen) Urine Trichomonas None seen (NONE SEEN) Urine Yeast None (NONE SEEN) Urinalysis Comment None Urine Culture Reflexed Indicated Prothrombin Time 10.8sec (8.1-12.5) Prothromb Time International Ratio 1.01ratio Activated Partial Thromboplast Time 49.7sec (22.8-33.0) Troponin T 0.010ug/L (0.0-0.011) Triglycerides Level 79mg/dL (0-149) Cholesterol Level 141mg/dL (100-199) LDL Cholesterol, Calculated 63.200mg/dL (0-99) VLDL Cholesterol 15.800mg/dL HDL Cholesterol 62mg/dL (>39) Cholesterol/HDL Ratio 2.27 (0.0-4.4) Test 11/06/16 03:40 Sodium Level 140mEq/L (134-144) Potassium Level 4.1mEq/L (3.5-5.2) Chloride Level 106mEq/L (97-108) Carbon Dioxide Level 23mmol/L (18-29) Blood Urea Nitrogen 14mg/dL (8-27) Creatinine 0.80mg/dL (0.76-1.27) Estimat Glomerular Filtration Rate 99mL/min (>59) Glucose Level 113mg/dL (60-99) Calcium Level 8.9mg/dL (8.5-10.1) Discharge Medications Discharge Medications Amlodipine (Amlodipine) 5 Mg Tablet 5 MG PO HS (Reported) Ascorbic Acid (Vitamin C) 250 Mg Tab.chew 500 MG PO DAILY (Reported) Aspirin (Aspirin) 81 Mg Tablet 81 MG PO HS (Reported) Calcium Carbonate (Tums) 500 Mg Tab.chew 500 MG PO DAILY (Reported) Cholecalciferol (Vitamin D3) (Vitamin D) 1,000 Unit Tablet 1,000 UNIT PO DAILY ( Reported) Clopidogrel (Clopidogrel) 75 Mg Tablet 75 MG PO DAILY Prescribed by: ARITE RABAGO DO Clopidogrel Bisulfate (Plavix) 75 Mg Tablet 75 MG PO DAILY Prescribed by: ELIZABETH DUNN MD Magnesium Oxide (Magnesium) 250 Mg Tablet 250 MG PO DAILY (Reported) Metoprolol Tartrate (Metoprolol Tartrate) 25 Mg Tablet 12.5 MG PO BID Prescribed by: ARTIE RABAGO DO Metoprolol Tartrate (Metoprolol Tartrate) 25 Mg Tablet 12.5 MG PO BID Prescribed by: ELIZABETH DUNN MD Multivitamin (Once Daily) 1 Each Tablet 1 EACH PO DAILY (Reported) Woodland-3 Fatty Acids/Fish Oil (Woodland 3 1,000 mg Softgel) 1 Each Capsule 1 CAPSULE PO DAILY (Reported) Omeprazole (Omeprazole) 20 Mg Capsule.dr 20 MG PO Every other day (Reported) Rosuvastatin Calcium (Crestor) 5 Mg Tablet 5 MG PO HS Prescribed by: FUAD MUNIZ DO Ubidecarenone (Co Q-10) 100 Mg Capsule 100 MG PO DAILY (Reported) Vit B Comp/C/FA/Iron/Vit E (Vitamin B Complex Tablet) 1 Each Tablet 1 TAB PO DAILY (Reported) Zinc Gluconate (Zinc) 50 Mg Tablet 50 MG PO DAILY (Reported) As needed Nitroglycerin SL (Nitrostat) 0.4 Mg Tab.subl 0.4 MG SL Q5MIN PRN PRN For Chest Pain (Reported) Additional med instructions We have added 2 medications to your regimen, Plavix 75 mg daily which is a blood thinner that works with Aspirin to help prevent clots, and Metoprolol which will help your heart to not work as hard which reduced the stress upon it. Followup Plan Disposition: Home Follow-up plan Please follow up with your primary care provider within 2 weeks. Discharge Diet: Heart Healthy Discharge Activity: Limited until seen by PCP Follow-up with PCP in: Other (Patient is a [place] resident and will be returning there for followup) Time spent Time Spent planning and coordinating discharge greater than 35 minutes. Attending Statement Patient has been seen and examined by myself with medical coordinator pesticide use and agree with above history, physical, assessment and plan. Artie Rabago DO Nov 06, 2016 17:01 Elizabeth Dunn MD Nov 06, 2016 17:18
== END 2016-11-06 14:15 | disposition home or self-care (01) ==
LOC: SED 12:43 → PCC 14:10
PROVIDERS: ADMIT Internal Medicine; ATTEND Specialist
DX: I25.710 Atherosclerosis of autologous vein coronary artery bypass graft(s) with unstable angina pectoris (principal); I25.110 Atherosclerotic heart disease of native coronary artery with unstable angina pectoris; G47.33 Obstructive sleep apnea (adult) (pediatric); E78.5 Hyperlipidemia, unspecified; I10 Essential (primary) hypertension; Z95.1 Presence of aortocoronary bypass graft; Z79.82 Long term (current) use of aspirin; Z87.891 Personal history of nicotine dependence
CPT/HCPCS: 36415; 71010; 80048; 80053; 80061; 81000; 83735; 83880; 84484; 85025; 85610; 85730; 87086; 93005; 93459; 96374; 99152; 99153; 99285; C1769; G0378; J1644; J2250; J2270; J3010; J7030; Q9967